=== PATIENT | male | born 1955 | race American Indian/Alaskan Native ===

== ENCOUNTER 2017-06-17 07:50 | Outpatient (CLI) | payer BC ==
[2017-06-17 08:51] LABS: Blood Urea Nitrogen 8 mg/dL (9-20)
--- NOTE | 2017-06-17 11:54 | Cat Scan Report ---
CT ABDOMEN AND PELVIS WITH AND WITHOUT CONTRAST INDICATION: Microscopic hematuria. COMPARISON: 10/06/2014 FINDINGS: Abdomen and pelvis CT performed following oral and IV contrast. Precontrast images also obtained. LUNG BASES: Slight air filled distal esophageal prominence/thickening, not exclude for gastroesophageal reflux and/or hiatal hernia, amongst others. Stable 1.2 cm peripheral left lower lobe pneumatocele. New 2 cm right retrocrural lymphadenopathy, axial image 19, series 4. ABDOMEN: Precontrast images demonstrate no radiopaque gallstones or renal calculi. Postcontrast images demonstrate unremarkable liver, spleen, gallbladder, pancreas, adrenals, non-aneurysmal abdominal aorta with mild atherosclerotic calcifications, IVC and kidneys. No ascites. Retroperitoneal lymphadenopathy with largest left paraortic lymph node measuring 3.2 x 2.7 cm, axial image 47, series 4. Some iliac chain lymphadenopathy also noted, measuring up to 1.9 cm on the right, axial image 93, series 4. Opacified GI tract nonobstructive. Mild to moderate colonic stool/possible constipation. PELVIS: An enlarged, 5.5 cm AP x 4.6 cm transverse prostate creates an impression at the bladder base and may be correlated for clinically and with PSA. Otherwise grossly unremarkable urinary bladder and the rectosigmoid. No free fluid or inguinal lymphadenopathy. A 2.2 x 1.5 cm right lateral pelvic wall lymph node noted, axial image 127, series 4. Innumerable sclerotic metastases throughout the imaged spine now seen with the largest 1.2 cm focus in L2 posterior midline, axial image 49, series 4. Bilateral L4-L5 facet arthropathy with minimal, 1 mm spondylolisthesis. Multiple small pelvic sclerotic metastases also noted. CONCLUSION: 1. Diffuse bony metastatic disease is new, as described. Extensive lymphadenopathy also noted in this patient with an enlarged, suspected neoplastic prostate. Please correlate. 2. Various other incidental findings, as above. Thank you for the opportunity to participate in this patient's care.
--- NOTE | 2017-06-17 12:44 | Nuclear Medicine Report ---
NUCLEAR MEDICINE WHOLE BODY BONE SCAN HISTORY: Malignant neoplasm of prostate. TECHNIQUE: Anterior and posterior whole body images were obtained 3 hours after injection of 25 mCi of technetium 99 M. MDP. FINDINGS: No previous bone scan. Correlation is made with CT abdomen and pelvis performed the same day. The bone scan images demonstrate numerous areas of abnormal increased radiotracer uptake throughout the cervical, thoracic and lumbar spine. Subtle areas of uptake are identified in multiple bilateral ribs. There is focal uptake overlying the glenoid of the right scapula. Focal uptake is also identified along the right side of the facial bones which may correlate with the right zygoma. There is very subtle heterogeneous uptake throughout the pelvis as well. CT performed the same day demonstrates numerous small sclerotic lesions throughout the spine, lower rib cage and pelvis which correlates with the above findings. IMPRESSION: Positive bone scan. Multiple metastatic lesions are appreciated as outlined above. These findings are also demonstrated on CT performed the same day.
== END 2017-06-17 07:51 | disposition home or self-care (01) ==
LOC: NM 07:50
PROVIDERS: ATTEND Urology
DX: C79.51 Secondary malignant neoplasm of bone (principal); C61 Malignant neoplasm of prostate; R31.29 Other microscopic hematuria; J98.4 Other disorders of lung; I70.0 Atherosclerosis of aorta; N40.0 Benign prostatic hyperplasia without lower urinary tract symptoms; M12.88 Other specific arthropathies, not elsewhere classified, other specified site; M43.16 Spondylolisthesis, lumbar region; R59.1 Generalized enlarged lymph nodes; F17.200 Nicotine dependence, unspecified, uncomplicated
CPT/HCPCS: 36415; 74178; 78306; 82565; 84520; A9503; Q9967

== ENCOUNTER 2018-02-16 09:58 | Emergency (ER) | payer BC ==
[2018-02-16 11:24] LABS: Basophils % (Auto) 0.6 % (0.0-1.8); Hematocrit 41.4 % (35.5-45.6); Hemoglobin 13.9 gm/dl (11.8-15.2); Lymphocytes # (Auto) 1.6 K/mm3 (1.2-5.4); Lymphocytes % (Auto) 39.3 % (13.4-35.0); Mean Corpuscular HGB Conc 34 % (32-34); Mean Corpuscular Hemoglobin 26 pg (28-32); Mean Corpuscular Volume 79 fl (84-94); Monocytes # (Auto) 0.4 K/mm3 (0.0-0.8); Monocytes % (Auto) 8.9 % (0.0-7.3); Platelet Count 176 K/mm3 (140-440); Red Blood Count 5.26 M/mm3 (3.65-5.03); Red Cell Distribution Width 16.7 % (13.2-15.2)
[2018-02-16 11:50] LABS: Alanine Aminotransferase 36 units/L (7-56); Albumin 4.1 g/dL (3.9-5); BUN/Creatinine Ratio 25; Blood Urea Nitrogen 10 mg/dL (9-20); Calcium 9.3 mg/dL (8.4-10.2); Hemolysis Index 1
[2018-02-16 12:46] LABS: Bilirubin,Urine NEG (Negative); Blood,Urine NEG (Negative); Color,Urine Yellow (Yellow); Protein,Urine <15 mg/dL mg/dL (Negative); Urobilinogen,Urine < 2.0 mg/dL (<2.0)
[2018-02-16 12:56] LABS: Amphetamine Screen,Urine PRESUMPTIVE NEGATIVE; Benzodiazepines Screen,Urine PRESUMPTIVE NEGATIVE; Cannabinoid Screen,Urine PRESUMPTIVE NEGATIVE; Cocaine Screen,Urine PRESUMPTIVE NEGATIVE; Methadone Screen,Urine PRESUMPTIVE NEGATIVE; Opiate Screen,Urine PRESUMPTIVE NEGATIVE
--- NOTE | 2018-02-16 13:30 | Emergency Department Report ---
ED Altered Mental Status HPI - General Chief Complaint: Altered Mental Status Stated Complaint: DIZZINESS Time Seen by Provider: 02/16/18 13:11 Source: patient Mode of arrival: Ambulatory Limitations: No Limitations - History of Present Illness Initial Comments: 62-year-old male with a past medical history prostate cancer and hypertension presents to the hospital for changes in mental status and behavior. reports that patient is more irritable lately, anger outbursts, and not sleeping the last couple of days. Patient takes multiple medications including Cymbalta at bedtime. Patient denies any physical complaints or neurologic deficits. He expresses that he is frustrated because he takes so many pills and is doing with prostate cancer. Patient completed chemotherapy and is now currently getting Lupron shots every 3 months. Patient takes oxycodone 15 mg as needed for chronic pain to his legs and abdomen but sometimes takes 2 tablets at a time. He reports that after taking medication yesterday he had difficulty driving home. Patient has not had any narcotics today. - Related Data Previous Rx's Medication Instructions Recorded Last Taken Type Omeprazole [PriLOSEC] 20 mg PO QDAY #30 capsule. 10/06/14 Unknown Rx Promethazine [Phenergan] 25 mg PO Q6H PRN #30 tablet 10/06/14 Unknown Rx Tramadol HCl [traMADol] 50 mg PO Q6HR PRN #20 tablet 10/06/14 Unknown Rx amLODIPine [Norvasc] 5 mg PO DAILY #30 tab 10/06/14 Unknown Rx hydrOXYzine PAMOATE [Vistaril] 50 mg PO QHS PRN #20 capsule 02/16/18 Unknown Rx Allergies Allergy/AdvReac Type Severity Reaction Status Date / Time No Known Allergies Allergy Unverified 10/05/14 20:23 ED Review of Systems ROS: Stated complaint: DIZZINESS Other details as noted in HPI Comment: All other systems reviewed and negative ED Past Medical Hx - Past Medical History Previous Medical History?: Yes Hx Hypertension: Yes (Lisinopril) Hx of Cancer: Yes (PROSTATE STAGE 4) - Surgical History Past Surgical History?: No - Social History Smoking Status: Current Every Day Smoker Substance Use Type: Alcohol, Prescribed - Medications Home Medications: Home Medications Medication Instructions Recorded Confirmed Last Taken Type Omeprazole [PriLOSEC] 20 mg PO QDAY #30 capsule. 10/06/14 Unknown Rx Promethazine [Phenergan] 25 mg PO Q6H PRN #30 tablet 10/06/14 Unknown Rx Tramadol HCl [traMADol] 50 mg PO Q6HR PRN #20 tablet 10/06/14 Unknown Rx amLODIPine [Norvasc] 5 mg PO DAILY #30 tab 10/06/14 Unknown Rx hydrOXYzine PAMOATE [Vistaril] 50 mg PO QHS PRN #20 capsule 02/16/18 Unknown Rx ED Physical Exam - General Limitations: No Limitations - Other Other exam information: General: No limitations, patient is alert in no acute distress Head exam: Atraumatic, normocephalic Eyes exam: Normal appearance, pupils equal reactive to light, extraocular movements intact ENT: Moist mucous membrane, normal oropharynx Neck exam: Normal inspection, full range of motion, no meningismus nontender Respiratory exam: Clear to auscultation bilateral, no wheezes, rales, crackles Cardiovascular: Normal rate and rhythm, normal heart sounds Abdomen: Soft, nondistended, and nontender, with normal bowel sounds, no rebound, or guarding Extremity: Full range of motion normal inspection no deformity Back: Normal Inspection, full range of motion, no tenderness Neurologic: Alert, oriented x3, cranial nerves intact, no motor or sensory deficit, NIH stroke scale 0 Psychiatric: Patient does have angry and aggressive tone and expresses frustration but is cooperative and not combative with staff. Skin: Warm, dry, intact - Assessment Assessment Interval: Baseline - Level of Consciousness 1a. Level of Consciousness: alert - LOC Questions 1b. LOC Questions: answers correctly - LOC Command 1c. LOC Commands: performs tasks correctly - Best Gaze 2. Best Gaze: normal - Visual 3. Visual: no visual loss - Facial Palsy 4. Facial Palsy: normal symmetrical movement - Motor Arm 5b. Motor Arm Right: no drift 5a. Motor Arm Left: no drift - Motor Leg 6a. Motor Leg Left: no drift 6b. Motor Leg Right: no drift - Limb Ataxia 7. Limb Ataxia: absent - Sensory 8. Sensory: normal - Best Language 9. Best Language: no aphasia - Dysarthria 10. Dysarthria: normal - Extinction and Inattention 11. Extinction/Inattention: no abnormality - Scoring Total Score: 0 Stroke Severity: No Stroke Symptoms ED Course Vital Signs 02/16/18 02/16/18 10:44 13:25 Temperature 98.8 F Pulse Rate 71 71 Respiratory 18 18 Rate Blood Pressure 170/94 Blood Pressure 158/100 [Left] O2 Sat by Pulse 99 100 Oximetry - Lab Data Result diagrams: 02/16/18 11:07 02/16/18 11:07 Lab Results 02/16/18 02/16/18 02/16/18 Range/Units 11:07 11:07 11:07 WBC 4.0 L (4.5-11.0) K/mm3 RBC 5.26 H (3.65-5.03) M/mm3 Hgb 13.9 (11.8-15.2) gm/dl Hct 41.4 (35.5-45.6) % MCV 79 L (84-94) fl MCH 26 L (28-32) pg MCHC 34 (32-34) % RDW 16.7 H (13.2-15.2) % Plt Count 176 (140-440) K/mm3 Lymph % (Auto) 39.3 H (13.4-35.0) % Thomas % (Auto) 8.9 H (0.0-7.3) % Eos % (Auto) 1.0 (0.0-4.3) % Baso % (Auto) 0.6 (0.0-1.8) % Lymph # 1.6 (1.2-5.4) K/mm3 Thomas # 0.4 (0.0-0.8) K/mm3 Eos # 0.0 (0.0-0.4) K/mm3 Baso # 0.0 (0.0-0.1) K/mm3 Seg Neutrophils % 50.2 (40.0-70.0) % Seg Neutrophils # 2.0 (1.8-7.7) K/mm3 Sodium 139 (137-145) mmol/L Potassium 4.1 (3.6-5.0) mmol/L Chloride 99.4 (98-107) mmol/L Carbon Dioxide 27 (22-30) mmol/L Anion Gap 17 mmol/L BUN 10 (9-20) mg/dL Creatinine 0.4 L (0.8-1.5) mg/dL Estimated GFR > 60 ml/min BUN/Creatinine Ratio 25 % Glucose 109 H (75-100) mg/dL POC Glucose (70-105) Calcium 9.3 (8.4-10.2) mg/dL Total Bilirubin 0.40 (0.1-1.2) mg/dL AST 57 H (5-40) units/L ALT 36 (7-56) units/L Alkaline Phosphatase 72 (35-129) units/L Total Protein 7.2 (6.3-8.2) g/dL Albumin 4.1 (3.9-5) g/dL Albumin/Globulin Ratio 1.3 % TSH 0.291 (0.270-4.200) mlU/mL Urine Color (Yellow) Urine Turbidity (Clear) Urine pH (5.0-7.0) Ur Specific [place] (1.003-1.030) Urine Protein (Negative) mg/dL Urine Glucose (UA) (Negative) mg/dL Urine Ketones (Negative) mg/dL Urine Blood (Negative) Urine Nitrite (Negative) Urine Bilirubin (Negative) Urine Urobilinogen (<2.0) mg/dL Ur Leukocyte Esterase (Negative) Urine WBC (Auto) (0.0-6.0) /HPF Urine RBC (Auto) (0.0-6.0) /HPF Urine Opiates Screen Urine Methadone Screen Ur Barbiturates Screen Ur Phencyclidine Scrn Ur Amphetamines Screen U Benzodiazepines Scrn Urine Cocaine Screen U Marijuana (THC) Screen Drugs of Abuse Note Plasma/Serum Alcohol (0-0.07) % 02/16/18 02/16/18 02/16/18 Range/Units 11:07 11:41 11:44 WBC (4.5-11.0) K/mm3 RBC (3.65-5.03) M/mm3 Hgb (11.8-15.2) gm/dl Hct (35.5-45.6) % MCV (84-94) fl MCH (28-32) pg MCHC (32-34) % RDW (13.2-15.2) % Plt Count (140-440) K/mm3 Lymph % (Auto) (13.4-35.0) % Thomas % (Auto) (0.0-7.3) % Eos % (Auto) (0.0-4.3) % Baso % (Auto) (0.0-1.8) % Lymph # (1.2-5.4) K/mm3 Thomas # (0.0-0.8) K/mm3 Eos # (0.0-0.4) K/mm3 Baso # (0.0-0.1) K/mm3 Seg Neutrophils % (40.0-70.0) % Seg Neutrophils # (1.8-7.7) K/mm3 Sodium (137-145) mmol/L Potassium (3.6-5.0) mmol/L Chloride (98-107) mmol/L Carbon Dioxide (22-30) mmol/L Anion Gap mmol/L BUN (9-20) mg/dL Creatinine (0.8-1.5) mg/dL Estimated GFR ml/min BUN/Creatinine Ratio % Glucose (75-100) mg/dL POC Glucose (70-105) Calcium (8.4-10.2) mg/dL Total Bilirubin (0.1-1.2) mg/dL AST (5-40) units/L ALT (7-56) units/L Alkaline Phosphatase (35-129) units/L Total Protein (6.3-8.2) g/dL Albumin (3.9-5) g/dL Albumin/Globulin Ratio % TSH (0.270-4.200) mlU/mL Urine Color Yellow (Yellow) Urine Turbidity Clear (Clear) Urine pH 8.0 H (5.0-7.0) Ur Specific [place] 1.010 (1.003-1.030) Urine Protein <15 mg/dl (Negative) mg/dL Urine Glucose (UA) Neg (Negative) mg/dL Urine Ketones Neg (Negative) mg/dL Urine Blood Neg (Negative) Urine Nitrite Neg (Negative) Urine Bilirubin Neg (Negative) Urine Urobilinogen < 2.0 (<2.0) mg/dL Ur Leukocyte Esterase Neg (Negative) Urine WBC (Auto) 0.0 (0.0-6.0) /HPF Urine RBC (Auto) 2.0 (0.0-6.0) /HPF Urine Opiates Screen Presumptive negative Urine Methadone Screen Presumptive negative Ur Barbiturates Screen Presumptive negative Ur Phencyclidine Scrn Presumptive negative Ur Amphetamines Screen Presumptive negative U Benzodiazepines Scrn Presumptive negative Urine Cocaine Screen Presumptive negative U Marijuana (THC) Screen Presumptive negative Drugs of Abuse Note Disclamer Plasma/Serum Alcohol < 0.01 (0-0.07) % 02/16/18 Range/Units 13:21 WBC (4.5-11.0) K/mm3 RBC (3.65-5.03) M/mm3 Hgb (11.8-15.2) gm/dl Hct (35.5-45.6) % MCV (84-94) fl MCH (28-32) pg MCHC (32-34) % RDW (13.2-15.2) % Plt Count (140-440) K/mm3 Lymph % (Auto) (13.4-35.0) % Thomas % (Auto) (0.0-7.3) % Eos % (Auto) (0.0-4.3) % Baso % (Auto) (0.0-1.8) % Lymph # (1.2-5.4) K/mm3 Thomas # (0.0-0.8) K/mm3 Eos # (0.0-0.4) K/mm3 Baso # (0.0-0.1) K/mm3 Seg Neutrophils % (40.0-70.0) % Seg Neutrophils # (1.8-7.7) K/mm3 Sodium (137-145) mmol/L Potassium (3.6-5.0) mmol/L Chloride (98-107) mmol/L Carbon Dioxide (22-30) mmol/L Anion Gap mmol/L BUN (9-20) mg/dL Creatinine (0.8-1.5) mg/dL Estimated GFR ml/min BUN/Creatinine Ratio % Glucose (75-100) mg/dL POC Glucose 118 H (70-105) Calcium (8.4-10.2) mg/dL Total Bilirubin (0.1-1.2) mg/dL AST (5-40) units/L ALT (7-56) units/L Alkaline Phosphatase (35-129) units/L Total Protein (6.3-8.2) g/dL Albumin (3.9-5) g/dL Albumin/Globulin Ratio % TSH (0.270-4.200) mlU/mL Urine Color (Yellow) Urine Turbidity (Clear) Urine pH (5.0-7.0) Ur Specific [place] (1.003-1.030) Urine Protein (Negative) mg/dL Urine Glucose (UA) (Negative) mg/dL Urine Ketones (Negative) mg/dL Urine Blood (Negative) Urine Nitrite (Negative) Urine Bilirubin (Negative) Urine Urobilinogen (<2.0) mg/dL Ur Leukocyte Esterase (Negative) Urine WBC (Auto) (0.0-6.0) /HPF Urine RBC (Auto) (0.0-6.0) /HPF Urine Opiates Screen Urine Methadone Screen Ur Barbiturates Screen Ur Phencyclidine Scrn Ur Amphetamines Screen U Benzodiazepines Scrn Urine Cocaine Screen U Marijuana (THC) Screen Drugs of Abuse Note Plasma/Serum Alcohol (0-0.07) % - Medical Decision Making Patient is alert and oriented 3 and has no neurologic deficits. The patient expresses frustration and complains anger outbursts. Patient has not been sleeping the last couple of days. ED workup unremarkable. Vistaril will be prescribed to be taken at bedtime to aid in sleep. - Differential Diagnosis insomnia, depression, encephalopathy, electrolyte abnormality Critical Care Time: No Critical care attestation.: If time is entered above; I have spent that time in minutes in the direct care of this critically ill patient, excluding procedure time. ED Disposition Clinical Impression: Insomnia, Outbursts of anger, Prostate cancer, HTN (hypertension), Chronic pain Disposition: DC-01 TO HOME OR SELFCARE Is pt being admited?: No Does the pt Need Aspirin: No Condition: Stable Instructions: Hypertension (ED), Insomnia (ED) Additional Instructions: Take the Vistaril for insomnia 30-60 minutes before bedtime. Follow up with her primary care doctor for further management and medication adjustment. Take oxycodone as prescribed and do not increase your dosage unless directed by your physician. Please do not drive or operate heavy machinery while taking this medication. Prescriptions: hydrOXYzine PAMOATE [Vistaril] 50 mg PO QHS PRN #20 capsule PRN Reason: Insomnia Referrals: PRIMARY CARE, [Primary Care Provider] - 3-5 Days Time of Disposition: 13:45
[2018-02-16 13:40] VITALS: BP 158/100
== END 2018-02-16 14:01 | disposition home or self-care (01) ==
LOC: ED 09:58
DX: I10 Essential (primary) hypertension (principal); G47.00 Insomnia, unspecified; G89.29 Other chronic pain; F41.9 Anxiety disorder, unspecified; R45.4 Irritability and anger; C61 Malignant neoplasm of prostate; F17.200 Nicotine dependence, unspecified, uncomplicated
CPT/HCPCS: 36415; 80053; 80307; 81001; 82962; 84443; 85025; 93005; 93010; 99284; G0480; 80320

== ENCOUNTER 2021-08-06 11:52 | Emergency (ER) | payer BC, MEDICARE ==
--- NOTE | 2021-08-06 12:27 | Event Note ---
ED Screening Note ED Screening Note: stage iv prostate ca on oral chemo comes to ER co worsening back and abd pain Gets care at [place] Pt has a bag of meds for review This initial assessment/diagnostic orders/clinical plan/treatment(s) is/are subject to change based on patients health status, clinical progression and re- assessment by fellow clinical providers in the ED. Further treatment and workup at subsequent clinical providers discretion. Patient/guardian urged not to elope from the ED as their condition may be serious if not clinically assessed and managed. Initial orders include: labs pain management
[2021-08-06 12:50] LABS: Basophils % (Auto) 0.7 % (0.0-1.8); Eosinophils # (Auto) 0.1 K/mm3 (0.0-0.4); Eosinophils % (Auto) 1.5 % (0.0-4.3); Hematocrit 35.5 % (35.5-45.6); Hemoglobin 11.9 gm/dl (11.8-15.2); Lymphocytes # (Auto) 1.5 K/mm3 (1.2-5.4); Lymphocytes % (Auto) 41.1 % (13.4-35.0); Mean Corpuscular HGB Conc 33 % (32-34); Mean Corpuscular Volume 82 fl (84-94); Monocytes # (Auto) 0.4 K/mm3 (0.0-0.8); Monocytes % (Auto) 9.4 % (0.0-7.3); Platelet Count 394 K/mm3 (140-440); Red Blood Count 4.35 M/mm3 (3.65-5.03); Red Cell Distribution Width 13.6 % (13.2-15.2)
[2021-08-06 13:01] LABS: INR 0.92 (0.87-1.13)
[2021-08-06 13:11] LABS: Alanine Aminotransferase 26 units/L (7-56); Albumin 3.5 g/dL (3.9-5); BUN/Creatinine Ratio 9; Bilirubin,Direct 0.2 mg/dL (0-0.2); Blood Urea Nitrogen 7 mg/dL (9-20); Calcium 8.2 mg/dL (8.4-10.2); Hemolysis Index 9
[2021-08-06] MEDS ORDERED: MORPHINE 4 MG/1 ML INJ IV ONE (13:11)
--- NOTE | 2021-08-06 13:15 | Emergency Department Report ---
ED Abdominal Pain HPI - General Chief Complaint: Pain General Stated Complaint: WEAK/BODY PAIN Time Seen by Provider: 08/06/21 12:26 Source: patient Mode of arrival: Ambulatory Limitations: No Limitations - History of Present Illness Initial Comments: Patient presents with abdominal pain. For the last 3 to 4 days he has been having right-sided abdominal pain that radiates into the right flank. It is described as an aching pain. It is worse when he is supine and recumbent. It also is worsened by movement. There is no pain with palpation. He denies nausea or vomiting. There is no fevers or chills. Has no dysuria or frequency. He states that he has urinated in the bed and that is something unusual for him. Patient has known prostate cancer. He gets all of his care at [place]. He has been taking his usual oxycodone 10 mg and Tylenol 2 extra strength without symptomatic improvement. He decided to come here today because of the pain. He did not call his oncologist. He has not had pain like this before. There is no history of recent travel or trauma. Has no fevers or chills. There is no other GI complaint. - Related Data Previous Rx's Medication Instructions Recorded Last Taken Type Omeprazole [PriLOSEC] 20 mg PO QDAY #30 capsule. 10/06/14 1 Day Ago Rx ~08/05/21 amLODIPine [Norvasc] 5 mg PO DAILY #30 tab 10/06/14 1 Day Ago Rx ~08/05/21 Allergies Allergy/AdvReac Type Severity Reaction Status Date / Time No Known Allergies Allergy Verified 08/06/21 12:02 ED Review of Systems ROS: Stated complaint: WEAK/BODY PAIN Other details as noted in HPI Comment: All other systems reviewed and negative Constitutional: denies: fever Eyes: denies: eye pain ENT: denies: throat pain Respiratory: denies: cough Cardiovascular: denies: chest pain Endocrine: denies: unexplained weight loss Gastrointestinal: as per HPI Genitourinary: denies: dysuria Musculoskeletal: as per HPI Skin: denies: rash Neurological: denies: headache Hematological/Lymphatic: denies: easy bruising ED Past Medical Hx - Past Medical History Hx Hypertension: Yes (Lisinopril) Hx of Cancer: Yes (Prostate) - Surgical History Past Surgical History?: No - Family History Family history: hypertension - Social History Smoking Status: Current Every Day Smoker (We discussed tobacco cessation x3 minutes) Substance Use Type: Alcohol, Prescribed - Medications Home Medications: Home Medications Medication Instructions Recorded Confirmed Last Taken Type Omeprazole [PriLOSEC] 20 mg PO QDAY #30 capsule. 10/06/14 1 Day Ago Rx ~08/05/21 amLODIPine [Norvasc] 5 mg PO DAILY #30 tab 10/06/14 1 Day Ago Rx ~08/05/21 ED Physical Exam - General Limitations: No Limitations, Other (Pulse ox noted and normal) General appearance: alert, in no apparent distress, other (He is eating a sandwich) - Head Head exam: Present: atraumatic, normocephalic, normal inspection - Eye Eye exam: Present: normal appearance, EOMI. Absent: scleral icterus - ENT ENT exam: Present: normal exam, normal orophraynx, normal external ear exam - Neck Neck exam: Present: normal inspection. Absent: meningismus - Respiratory Respiratory exam: Present: normal lung sounds bilaterally. Absent: respiratory distress - Cardiovascular Cardiovascular Exam: Present: regular rate, normal rhythm - GI/Abdominal GI/Abdominal exam: Present: soft. Absent: distended, tenderness, pulsatile mass - Extremities Exam Extremities exam: Present: normal capillary refill - Back Exam Back exam: Absent: CVA tenderness (R) - Neurological Exam Neurological exam: Present: alert, oriented X3, CN II-XII intact, normal gait, reflexes normal. Absent: motor sensory deficit - Psychiatric Psychiatric exam: Present: normal affect, normal mood - Skin Skin exam: Present: warm, dry ED Course Vital Signs 08/06/21 08/06/21 08/06/21 13:44 13:45 14:01 Pulse Rate 59 L 59 L 56 L Respiratory 26 H 13 15 Rate Blood Pressure 136/75 137/69 O2 Sat by Pulse 100 100 Oximetry 08/06/21 16:34 Pulse Rate Respiratory 18 Rate Blood Pressure O2 Sat by Pulse 95 Oximetry - Reevaluation(s) Reevaluation #1: 08/06/21 13:14 Labs were ordered. Old records reviewed. Reevaluation #2: 08/06/21 13:51 Electrolytes were noted. Oral potassium was ordered. The labs are still pending. Reevaluation #3: 08/06/21 17:13 Labs were noted and the patient was discharged ED Medical Decision Making - Lab Data Result diagrams: 08/06/21 12:34 08/06/21 12:34 Rhythm strip: Normal sinus rhythm without ectopy. Monitor observed in seconds. - Medical Decision Making Patient presented with pain related to cancer. There is no evidence of acute kidney injury. He does not have evidence of infectious pathology. There is no trauma that would have suggested any type of injury. He certainly does not have symptoms concerning for pathologic fracture. Patient does not have any abdominal tenderness on exam. There is no rebound or guarding at this time. He has no distention or tympany. I do not believe this represents bowel obstruction or peritonitis. He denies dysuria or frequency and has no hematuria. I am not concerned for pyelonephritis or renal colic. Critical Care Time: No Critical care attestation.: If time is entered above; I have spent that time in minutes in the direct care of this critically ill patient, excluding procedure time. ED Disposition Clinical Impression: Right lateral abdominal pain, Acute right flank pain, Hypokalemia Disposition: 01 HOME / SELF CARE / HOMELESS Is pt being admited?: No Condition: Stable Instructions: Hypokalemia, Flank Pain, Adult, Potassium Content of Foods Additional Instructions: Drink water. Return for problems. Continue home medication. Follow-up with yo ur regular oncologist for recheck and further management. Eat bananas and drink orange juice for potassium. Referrals: PRIMARY CARE, [Primary Care Provider] - 3-5 Days
[2021-08-06] MEDS ORDERED: POTASSIUM CHLORIDE ER 20 MEQ TAB PO ONE (13:50)
[2021-08-06 14:05] VITALS: BP 137/69
[2021-08-06 15:18] LABS: Bilirubin,Urine NEG (Negative); Blood,Urine NEG (Negative); Color,Urine Yellow (Yellow)
== END 2021-08-06 17:25 | disposition home or self-care (01) ==
LOC: ED 11:52
DX: E87.6 Hypokalemia (principal); R10.9 Unspecified abdominal pain; I10 Essential (primary) hypertension; F17.200 Nicotine dependence, unspecified, uncomplicated; Z72.89 Other problems related to lifestyle; Z79.899 Other long term (current) drug therapy
CPT/HCPCS: 36415; 80048; 80076; 81001; 83690; 83735; 84100; 85025; 85610; 96374; 99283; J2270

== ENCOUNTER 2021-08-21 08:17 | Inpatient (IN) | payer MEDICARE ==
--- NOTE | 2021-08-21 08:34 | Emergency Department Report ---
ED General Adult HPI - General Chief complaint: Abdominal Pain Stated complaint: ABDOMINAL PAIN PUI?: No Time Seen by Provider: 08/21/21 08:30 Source: patient, family, EMS ( EMS documentation not available at time of chart dictation ), RN notes reviewed, old records reviewed Mode of arrival: Stretcher Limitations: Physical Limitation - History of Present Illness Initial comments: The patient is a 66-year-old gentleman. He is not known to myself previously. He has a history of diabetes and stage IV prostate cancer. He takes oral chemotherapy. He typically gets his medical care at [facility]. The patient presents to the ER today with a primary complaint of nontraumatic right lower quadrant pain that radiates to the flank and back. He also endorses simultaneous weakness in legs giving out on him, predominantly in the right leg, for the past 3 days. The patient denies headache, neck pain, chest pain, vomiting, urinary symptoms. He has not defecated in 1 week. He has not urinated on himself today. No history of abdominal surgeries that he is aware of. Abdominal pain is sharp and throbbing, increases with palpation and range of motion, decreases with rest, and position. Lower extremity weakness is predominantly in the right leg, present for 3 days, mostly at the proximal hip, and constant. -: Gradual, days(s) Location: abdomen Radiation: back Severity scale (0 -10): 10 Quality: other Consistency: other Improves with: other Worsens with: other - Related Data Home Medications Medication Instructions Recorded Confirmed Last Taken Abiraterone Acetate 250 mg PO DAILY 08/22/21 08/22/21 08/20/21 09:00 DULoxetine 50 mg PO DAILY 08/22/21 08/22/21 08/20/21 09:00 Gabapentin [Neurontin] 800 mg PO TID 08/22/21 08/22/21 08/20/21 09:00 Lisinopril 20 mg PO DAILY 08/22/21 08/22/21 08/20/21 09:00 Pyridoxine HCl (Vitamin B6) 100 mg PO DAILY 08/22/21 08/22/21 Unknown [Vitamin B6] amLODIPine 10 mg PO DAILY 08/22/21 08/22/21 08/20/21 09:00 oxyCODONE 10 mg PO PRN 08/22/21 08/22/21 08/20/21 09:00 Previous Rx's Medication Instructions Recorded Last Taken Type Omeprazole [PriLOSEC] 20 mg PO QDAY #30 capsule. 10/06/14 1 Day Ago Rx ~08/05/21 Allergies Allergy/AdvReac Type Severity Reaction Status Date / Time No Known Allergies Allergy Verified 08/22/21 03:39 ED Review of Systems ROS: Stated complaint: ABDOMINAL PAIN Other details as noted in HPI Constitutional: malaise, weakness. denies: fever Eyes: denies: eye discharge ENT: denies: epistaxis Respiratory: denies: cough Cardiovascular: denies: chest pain Gastrointestinal: abdominal pain Musculoskeletal: back pain Neurological: weakness ED Past Medical Hx - Past Medical History Previous Medical History?: Yes Hx Hypertension: Yes (Lisinopril) Hx Diabetes: Yes Hx of Cancer: Yes (Stage 4 Prostate Cancer) - Social History Smoking Status: Current Every Day Smoker (We discussed tobacco cessation x3 rosa sanna) Substance Use Type: Alcohol, Prescribed - Medications Home Medications: Home Medications Medication Instructions Recorded Confirmed Last Taken Type Omeprazole [PriLOSEC] 20 mg PO QDAY #30 capsule. 10/06/14 08/22/21 1 Day Ago Rx ~08/05/21 Abiraterone Acetate 250 mg PO DAILY 08/22/21 08/22/21 08/20/21 09:00 History DULoxetine 50 mg PO DAILY 08/22/21 08/22/21 08/20/21 09:00 History Gabapentin [Neurontin] 800 mg PO TID 08/22/21 08/22/21 08/20/21 09:00 History Lisinopril 20 mg PO DAILY 08/22/21 08/22/21 08/20/21 09:00 History Pyridoxine HCl (Vitamin B6) 100 mg PO DAILY 08/22/21 08/22/21 Unknown History [Vitamin B6] amLODIPine 10 mg PO DAILY 08/22/21 08/22/21 08/20/21 09:00 History oxyCODONE 10 mg PO PRN 08/22/21 08/22/21 08/20/21 09:00 History ED Physical Exam - General Limitations: Physical Limitation General appearance: alert, in no apparent distress - Head Head exam: Present: atraumatic, normocephalic - Eye Eye exam: Present: normal appearance, EOMI. Absent: nystagmus - ENT ENT exam: Present: normal exam, normal orophraynx, mucous membranes moist, normal external ear exam - Neck Neck exam: Present: normal inspection, full ROM. Absent: tenderness, meningismus - Respiratory Respiratory exam: Present: normal lung sounds bilaterally. Absent: respiratory distress, wheezes, rales, rhonchi, stridor, decreased breath sounds - Cardiovascular Cardiovascular Exam: Present: regular rate, normal rhythm, normal heart sounds. Absent: bradycardia, tachycardia, irregular rhythm, systolic murmur, diastolic murmur, rubs, gallop - GI/Abdominal GI/Abdominal exam: Present: soft, tenderness, guarding, other (There is right flank tenderness. There is right lower quadrant tenderness). Absent: distended, rebound, rigid, pulsatile mass - Rectal Rectal exam: Present: deferred - Extremities Exam Extremities exam: Present: normal inspection, full ROM (Full range of motion bilateral upper extremities. Partial range of motion left lower extremity. Limited range of motion right lower extremity), other (2+ pulses noted in the bilateral upper and lower extremities. There is no palpable cord. negative Homans sign. Muscular compartments are soft. The pelvis is stable.). Absent: calf tenderness - Back Exam Back exam: Present: normal inspection, paraspinal tenderness, vertebral tenderness (L-spine, distal T-spine). Absent: CVA tenderness (R), CVA tenderness (L) - Neurological Exam Neurological exam: Present: alert (There is no facial droop. The tongue is midline. EOMI.), oriented X3, motor sensory deficit (There is 5 out of 5 strength in the bilateral upper extremities, with sensation intact to light touch and proprioception in the bilateral upper extremities.), other (Patient has 2 out of 5 strength in the right lower extremity, with intact sensation to light touch and proprioception in the right lower extremity.) - Psychiatric Psychiatric exam: Present: anxious - Skin Skin exam: Present: warm, dry, intact, normal color. Absent: rash - Other Other exam information: 5 out of 5 strength bilateral upper extremities. 4 out of 5 strength left lower extremity, left-sided hip extensor and flexor intact, left knee extensor and flexor intact, left foot dorsi and plantar flexion are intact. ED Course Vital Signs 08/21/21 08/21/21 08/21/21 08:21 08:31 08:33 Temperature 99.2 F Pulse Rate 67 62 81 Respiratory 16 14 21 Rate Blood Pressure Blood Pressure 153/81 [Right] O2 Sat by Pulse 100 100 Oximetry 08/21/21 08/21/21 08/21/21 08:34 08:35 08:36 Temperature 99.5 F Pulse Rate 88 78 Respiratory 19 14 Rate Blood Pressure 155/81 155/81 Blood Pressure [Right] O2 Sat by Pulse 100 100 Oximetry 08/21/21 08/21/21 08/21/21 08:37 08:39 08:41 Temperature Pulse Rate 101 H 80 70 Respiratory 22 22 25 H Rate Blood Pressure 155/81 155/81 155/81 Blood Pressure [Right] O2 Sat by Pulse 99 99 97 Oximetry 08/21/21 08/21/21 08/21/21 08:45 17:23 17:25 Temperature Pulse Rate Respiratory Rate Blood Pressure 137/67 137/67 Blood Pressure [Right] O2 Sat by Pulse 97 97 97 Oximetry 08/21/21 08/21/21 08/21/21 17:27 17:29 17:31 Temperature Pulse Rate Respiratory Rate Blood Pressure 137/67 137/67 144/68 Blood Pressure [Right] O2 Sat by Pulse 97 96 95 Oximetry 08/21/21 08/21/21 08/21/21 17:33 17:35 17:37 Temperature Pulse Rate Respiratory Rate Blood Pressure 144/68 144/68 144/68 Blood Pressure [Right] O2 Sat by Pulse 96 95 96 Oximetry 08/21/21 08/21/21 08/21/21 17:39 17:41 17:42 Temperature Pulse Rate Respiratory Rate Blood Pressure 144/68 144/68 166/84 Blood Pressure [Right] O2 Sat by Pulse 96 96 96 Oximetry 08/21/21 08/21/21 08/21/21 17:43 17:45 17:47 Temperature Pulse Rate Respiratory Rate Blood Pressure 144/68 144/68 144/68 Blood Pressure [Right] O2 Sat by Pulse 98 96 97 Oximetry 08/21/21 08/21/21 08/21/21 17:48 17:49 17:50 Temperature Pulse Rate Respiratory Rate Blood Pressure 144/68 144/68 144/68 Blood Pressure [Right] O2 Sat by Pulse 97 100 100 Oximetry 08/21/21 08/21/21 08/21/21 17:51 17:52 17:53 Temperature Pulse Rate Respiratory Rate Blood Pressure 144/68 144/68 144/68 Blood Pressure [Right] O2 Sat by Pulse 98 97 97 Oximetry 08/21/21 08/21/21 08/21/21 17:54 17:55 17:56 Temperature Pulse Rate Respiratory Rate Blood Pressure 144/68 144/68 144/68 Blood Pressure [Right] O2 Sat by Pulse 98 98 99 Oximetry 08/21/21 08/21/21 08/21/21 17:57 17:59 18:01 Temperature Pulse Rate Respiratory Rate Blood Pressure 144/68 144/68 140/70 Blood Pressure [Right] O2 Sat by Pulse 96 96 96 Oximetry 08/21/21 08/21/21 08/21/21 18:03 18:05 18:07 Temperature Pulse Rate Respiratory Rate Blood Pressure 140/70 140/70 140/70 Blood Pressure [Right] O2 Sat by Pulse 97 96 96 Oximetry 08/21/21 08/21/21 08/21/21 18:09 18:11 18:13 Temperature Pulse Rate Respiratory Rate Blood Pressure 140/70 140/70 140/70 Blood Pressure [Right] O2 Sat by Pulse 96 96 97 Oximetry 08/21/21 08/21/21 08/21/21 18:15 18:17 18:19 Temperature Pulse Rate Respiratory Rate Blood Pressure 140/70 140/70 140/70 Blood Pressure [Right] O2 Sat by Pulse 96 97 98 Oximetry 08/21/21 08/21/21 08/21/21 18:21 18:23 18:25 Temperature Pulse Rate Respiratory Rate Blood Pressure 140/70 140/70 140/70 Blood Pressure [Right] O2 Sat by Pulse 97 96 95 Oximetry 08/21/21 08/21/21 08/21/21 18:27 18:29 18:30 Temperature Pulse Rate Respiratory Rate Blood Pressure 140/70 140/70 144/70 Blood Pressure [Right] O2 Sat by Pulse 95 95 96 Oximetry 08/21/21 08/21/21 08/21/21 18:31 18:33 18:35 Temperature Pulse Rate Respiratory Rate Blood Pressure 144/70 144/70 144/70 Blood Pressure [Right] O2 Sat by Pulse 96 94 100 Oximetry 08/21/21 08/21/21 08/21/21 18:37 18:39 18:41 Temperature Pulse Rate Respiratory Rate Blood Pressure 144/70 144/70 144/70 Blood Pressure [Right] O2 Sat by Pulse 94 93 93 Oximetry 08/21/21 08/21/21 08/21/21 18:43 18:45 18:47 Temperature Pulse Rate Respiratory Rate Blood Pressure 144/70 144/70 144/70 Blood Pressure [Right] O2 Sat by Pulse 97 95 95 Oximetry 08/21/21 08/21/21 08/21/21 18:51 19:01 19:11 Temperature Pulse Rate Respiratory Rate Blood Pressure 144/70 141/74 141/74 Blood Pressure [Right] O2 Sat by Pulse 95 96 97 Oximetry 08/21/21 08/21/21 08/21/21 19:21 19:30 19:41 Temperature Pulse Rate Respiratory Rate Blood Pressure 141/74 138/70 138/70 Blood Pressure [Right] O2 Sat by Pulse 96 97 97 Oximetry 08/21/21 08/21/21 08/21/21 19:51 20:00 20:11 Temperature Pulse Rate Respiratory Rate Blood Pressure 138/70 125/69 125/69 Blood Pressure [Right] O2 Sat by Pulse 97 97 96 Oximetry 08/21/21 08/21/21 08/21/21 20:21 20:30 20:40 Temperature Pulse Rate Respiratory Rate Blood Pressure 125/69 129/69 129/69 Blood Pressure [Right] O2 Sat by Pulse 99 99 Oximetry - Reevaluation(s) Reevaluation #1: 08/21/21 10:08 Differential diagnosis, including not limited to: Appendicitis, colitis, diverticulitis, psoas abscess, myositis, spinal cord compression, metastatic cancer Assessment and plan: 66-year-old gentleman with a complaint of lower abdominal pain, back pain, and lower extremity weakness, with legs giving out on him. He reports a history of metastatic stage IV prostate cancer. We will obtain appropriate laboratory studies and treat his symptoms. We will obtain CT scan of the abdomen pelvis. We will also obtain thoracic lumbar MRI, with and without contrast. Contacted neurology on-call, Dr. Cash. I discussed my plan of care and clinical impression, regarding the patient's neurologic deficits. We discussed the patient's history, physical, and my clinical concern. He is in agreement with the plan of care. Hold steroids at this time. If in the unlikely event MRI nondiagnostic, Dr. Cash advises that it would be reasonable to admit the patient for urgent inpatient acquisition of MRI brain and C-spine. Laboratory studies thus far have demonstrated hypokalemia. We will replete this. Reassess after initial data points. I discussed this with the patient and his family member. They articulated understanding. 08/21/21 13:08 Patient reassessed multiple times. He feels improved after pain medication. Hypokalemia reviewed and addressed. CT scan abdomen pelvis shows constipation but otherwise no significant findings. Have made multiple phone calls to MRI. They tell myself and staff that they are backed up with outpatient studies, and with a stat study for the floor. This is escalated to the director card, and I also discussed with the hospital team. We have cleared it so that Mr. De may go next for his emergent MRI. He feels improved after hydromorphone for pain. Reevaluation #2: 08/21/21 13:11 Nursing team informing me that patient wants to sign out AMA. Went back and discussed this with the patient. Counseled him on need for emergent acquisition of MRI. The patient states he will now stay for an MRI. MRI has been called multiple times, and we have requested that this patient receive MRI next. 08/21/21 16:08 mri scan lumbar spine negative for acute findings. mri scan thoracic spine shows involvement at the T10 level. Contacted neurosurgery on-call, Dr. Ambriz. Discussed history, physical, imaging studies, clinical impression. He is reviewing the MRI findings, and CT scan Patient and gave permission for his care to be discussed with Lashell, medical collections representative coordinator at cancer treatment Center [facility]; [phone]. Apparently, this patient had been receiving treatment there in 2017, and then treatment lapsed secondary to lack of insurance. They are supposed to have a follow-up appointment next week. as a courtesy, and as per the request of the patient and family, discussed the details of his care with Lashell. I am currently awaiting callback from Dr. Ambriz. He is reviewing the images, and will make further recommendations shortly. 08/21/21 16:25 Dr. Ambriz advises admission to the medical service with neurosurgical consultation. Recommends steroids, and states his group will follow in consultation. We discussed with the patient and family. will admit to [facility] Reevaluation #3: 08/21/21 16:31 Dr Mirian South to admit to [facility] ED Medical Decision Making - Lab Data Result diagrams: 08/23/21 09:26 08/24/21 04:45 Vital Signs 08/21/21 08/21/21 08/21/21 08:21 08:31 08:33 Temperature 99.2 F Pulse Rate 67 62 81 Respiratory 16 14 21 Rate Blood Pressure Blood Pressure 153/81 [Right] O2 Sat by Pulse 100 100 Oximetry 08/21/21 08/21/21 08/21/21 08:34 08:35 08:36 Temperature 99.5 F Pulse Rate 88 78 Respiratory 19 14 Rate Blood Pressure 155/81 155/81 Blood Pressure [Right] O2 Sat by Pulse 100 100 Oximetry 08/21/21 08/21/21 08/21/21 08:37 08:39 08:41 Temperature Pulse Rate 101 H 80 70 Respiratory 22 22 25 H Rate Blood Pressure 155/81 155/81 155/81 Blood Pressure [Right] O2 Sat by Pulse 99 99 97 Oximetry 08/21/21 08:45 Temperature Pulse Rate Respiratory Rate Blood Pressure Blood Pressure [Right] O2 Sat by Pulse 97 Oximetry Lab Results 08/21/21 08/21/21 08/21/21 Range/Units 08:31 08:32 08:48 WBC 5.8 (4.5-11.0) K/mm3 RBC 4.69 (3.65-5.03) M/mm3 Hgb 12.8 (11.8-15.2) gm/dl Hct 38.2 (35.5-45.6) % MCV 81 L (84-94) fl MCH 27 L (28-32) pg MCHC 34 (32-34) % RDW 14.1 (13.2-15.2) % Plt Count 222 (140-440) K/mm3 Lymph % (Auto) 16.8 (13.4-35.0) % [place] % (Auto) 6.4 (0.0-7.3) % Eos % (Auto) 0.0 (0.0-4.3) % Baso % (Auto) 0.3 (0.0-1.8) % Lymph # (Auto) 1.0 L (1.2-5.4) K/mm3 [place] # (Auto) 0.4 (0.0-0.8) K/mm3 Eos # (Auto) 0.0 (0.0-0.4) K/mm3 Baso # (Auto) 0.0 (0.0-0.1) K/mm3 Seg Neutrophils % 76.5 H (40.0-70.0) % Seg Neutrophils # 4.5 (1.8-7.7) K/mm3 PT 13.2 (12.2-14.9) Sec. INR 0.90 (0.87-1.13) Sodium 136 L (137-145) mmol/L Potassium 2.6 L* (3.6-5.0) mmol/L Chloride 91.8 L (98-107) mmol/L Carbon Dioxide 28 (22-30) mmol/L Anion Gap 19 mmol/L BUN 7 L (9-20) mg/dL Creatinine 0.3 L (0.8-1.3) mg/dL Estimated GFR > 60 ml/min BUN/Creatinine Ratio 23 % Glucose 135 H (75-100) mg/dL Calcium 8.8 (8.4-10.2) mg/dL Magnesium (1.7-2.3) mg/dL Total Bilirubin 0.90 (0.1-1.2) mg/dL AST 42 H (5-40) units/L ALT 18 (7-56) units/L Alkaline Phosphatase 749 H (35-129) units/L Total Creatine Kinase (55-170) units/L Total Protein 7.7 (6.3-8.2) g/dL Albumin 3.9 (3.9-5) g/dL Albumin/Globulin Ratio 1.0 % 08/21/ Range/Units 08:48 WBC (4.5-11.0) K/mm3 RBC (3.65-5.03) M/mm3 Hgb (11.8-15.2) gm/dl Hct (35.5-45.6) % MCV (84-94) fl MCH (28-32) pg MCHC (32-34) % RDW (13.2-15.2) % Plt Count (140-440) K/mm3 Lymph % (Auto) (13.4-35.0) % [place] % (Auto) (0.0-7.3) % Eos % (Auto) (0.0-4.3) % Baso % (Auto) (0.0-1.8) % Lymph # (Auto) (1.2-5.4) K/mm3 [place] # (Auto) (0.0-0.8) K/mm3 Eos # (Auto) (0.0-0.4) K/mm3 Baso # (Auto) (0.0-0.1) K/mm3 Seg Neutrophils % (40.0-70.0) % Seg Neutrophils # (1.8-7.7) K/mm3 PT (12.2-14.9) Sec. INR (0.87-1.13) Sodium (137-145) mmol/L Potassium (3.6-5.0) mmol/L Chloride (98-107) mmol/L Carbon Dioxide (22-30) mmol/L Anion Gap mmol/L BUN (9-20) mg/dL Creatinine (0.8-1.3) mg/dL Estimated GFR ml/min BUN/Creatinine Ratio % Glucose (75-100) mg/dL Calcium (8.4-10.2) mg/dL Magnesium 2.50 H (1.7-2.3) mg/dL Total Bilirubin (0.1-1.2) mg/dL AST (5-40) units/L ALT (7-56) units/L Alkaline Phosphatase (35-129) units/L Total Creatine Kinase 92 (55-170) units/L Total Protein (6.3-8.2) g/dL Albumin (3.9-5) g/dL Albumin/Globulin Ratio % - EKG Data -: EKG Interpreted by [facility] EKG shows normal: sinus rhythm Rate: normal - EKG Data 08/21/21 10:08 EKG is interpreted 08: 31 Sinus rhythm, rate 63 bpm. Left axis deviation. Normal P wave axis. Left ventricular hypertrophy. Nonspecific T wave abnormalities. The QTC is prolonged. The MI intervals 141 ms. This is an abnormal EKG. This is not a STEMI. No prior EKGs available for my comparison. - Radiology Data Radiology results: pending, report reviewed, image reviewed CT ABDOMEN AND PELVIS WITH CONTRAST HISTORY: Acute abdominal pain, right lower quad 100 ml omni 300 . COMPARISON: None. TECHNIQUE: CT images of the abdomen and pelvis were obtained following administration of intravenous contrast. All CT scans at this location are performed using CT dose reduction for ALARA by means of automated exposure control. CONTRAST: 100 ml of intravenous contrast administered. FINDINGS: Lungs/bones: Emphysematous change with chronic changes in the lung bases Abdomen/pelvis: There is fatty infiltration the liver. Mild nodular appearance to the liver surface and enlargement could represent cirrhosis. Mild intra and extensor hepatic biliary ductal dilatation. Few small left renal cyst. Otherwise kidneys are normal. Spleen is mildly enlarged. Ad renal glands and pancreas appear normal. Upper GI tract is unremarkable. There is constipation throughout the colon. The appendix is not well seen. Bowel loops obscure visualization. Atherosclerotic changes seen throughout the aorta. No free fluid in the pelvis. IMPRESSION: 1. Constipation. The appendix is not visualized or evaluated well on this examination. Clinical correlation. 2. Hepatomegaly with hepatic steatosis. Mild intra and extra hepatic biliary ductal dilatation. Signer Name: Hoang Macias MD Signed: 08/21/2021 10:03 AM Workstation Name: [id number] MRI LUMBAR SPINE 08/21/2021 INDICATION / CLINICAL INFORMATION: Acute back pain, right lower extremity weakness. COMPARISON: None available. FINDINGS: GENERAL OBSERVATIONS: Unenhanced and enhanced MR images of the lumbar spine were obtained. Subtle left convex scoliosis is present. There is no evidence of acute abnormality. [id number] ANALYSIS: L5-S1: Moderate diffuse disc bulging. L4-5: Grade 1 anterolisthesis and prominent diffuse disc bulging associated with moderate facet degenerative changes. Severe stenosis of the central canal. L3-4: Moderate diffuse disc bulging and moderate central canal narrowing. L2-3: Unremarkable. L1-2: Unremarkable. BONE MARROW: Bone marrow signal is heterogeneous, consistent with degenerative change or bone marrow hyperplasia. SPINAL CORD/CAUDA EQUINA: Distal spinal cord is unremarkable. Tortuosity of cauda equina nerve roots is associated with the stenosis at the L4-5 level. PARASPINAL SOFT TISSUES: No significant abnormality. IMPRESSION: Degenerative changes as described above. Severe central canal stenosis at L4-5. Signer Name: Miles Antunez MD Signed: 08/21/2021 2:16 PM MRI THORACIC SPINE 08/21/2021 INDICATION / CLINICAL INFORMATION: Acute back pain, right lower extremity weakness. COMPARISON: None available. FINDINGS: GENERAL OBSERVATIONS: Unenhanced and enhanced MR images of the thoracic spine were obtained. At T10, there is evidence of osseous lesion, with expansion of the right pedicle and lamina, and bone marrow signal change throughout the T10 vertebral body. There is evidence of extraosseous epidural extension, resulting in moderately severe narrowing of the canal and displacement of the spinal cord towards the left. The appearance is consistent with metastatic disease. Bone marrow signal throughout the thoracic spine is very heterogeneous, with patchy areas of decreased signal. Possibility of diffuse osseous involvement with metastatic disease or myeloma must be considered. PARASPINAL SOFT TISSUES: No sign ificant abnormality. IMPRESSION: Diffuse osseous heterogeneity worrisome for metastatic disease. Prominent involvement at T10 with extraosseous epidural extension and canal stenosis. Signer Name: Miles Antunez MD Signed: 08/21/2021 2:25 PM Workstation Name: [id number] Critical Care Time: Yes Critical care time in (mins) excluding proc time.: 45 Critical care attestation.: If time is entered above; I have spent that time in minutes in the direct care of this critically ill patient, excluding procedure time. Critical Care Time: Critical care time includes multiple bedside reevaluations, interpretation of laboratory studies, radiology studies, and discussion with consulting services, including neurosurgery, for patient with metastatic cancer, with spinal cord compromise. 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
[2021-08-21] MEDS ORDERED: SODIUM CHLORIDE 0.9% 500 ML 500 ML IV ONE (09:03)
[2021-08-21] MEDS ORDERED: MORPHINE 4 MG/1 ML INJ IV ONE (09:03)
[2021-08-21] MEDS ORDERED: ONDANSETRON 4 MG/2 ML INJ IV ONE (09:03)
[2021-08-21 09:24] LABS: Basophils % (Auto) 0.3 % (0.0-1.8); Hematocrit 38.2 % (35.5-45.6); Hemoglobin 12.8 gm/dl (11.8-15.2); Lymphocytes % (Auto) 16.8 % (13.4-35.0); Mean Corpuscular HGB Conc 34 % (32-34); Mean Corpuscular Volume 81 fl (84-94); Monocytes # (Auto) 0.4 K/mm3 (0.0-0.8); Monocytes % (Auto) 6.4 % (0.0-7.3); Platelet Count 222 K/mm3 (140-440); Red Blood Count 4.69 M/mm3 (3.65-5.03); Red Cell Distribution Width 14.1 % (13.2-15.2)
[2021-08-21 09:35] LABS: INR 0.9 (0.87-1.13)
[2021-08-21 09:40] LABS: Alanine Aminotransferase 18 units/L (7-56); Albumin 3.9 g/dL (3.9-5); Blood Urea Nitrogen 7 mg/dL (9-20); Calcium 8.8 mg/dL (8.4-10.2); Hemolysis Index 28
[2021-08-21 09:42] LABS: BUN/Creatinine Ratio 23
[2021-08-21] MEDS ORDERED: POTASSIUM CHLORIDE ER 20 MEQ TAB PO ONE ×2 (10:03→20:40)
[2021-08-21] MEDS ORDERED: HYDROmorphone 1 MG/1 ML INJ IV ONE ×3 (10:54→13:05)
[2021-08-21] MEDS: POTASSIUM CHLORIDE 10 MEQ 10 MEQ/100 ML BAG IV SCH ×5 (11:02→23:08)
--- NOTE | 2021-08-21 11:08 | Cat Scan Report ---
CT ABDOMEN AND PELVIS WITH CONTRAST HISTORY: Acute abdominal pain, right lower quad 100 ml omni 300 . COMPARISON: None. TECHNIQUE: CT images of the abdomen and pelvis were obtained following administration of intravenous contrast. All CT scans at this location are performed using CT dose reduction for ALARA by means of automated exposure control. CONTRAST: 100 ml of intravenous contrast administered. FINDINGS: Lungs/bones: Emphysematous change with chronic changes in the lung bases Abdomen/pelvis: There is fatty infiltration the liver. Mild nodular appearance to the liver surface and enlargement could represent cirrhosis. Mild intra and extensor hepatic biliary ductal dilatation. Few small left renal cyst. Otherwise kidneys are normal. Spleen is mildly enlarged. Adrenal glands a nd pancreas appear normal. Upper GI tract is unremarkable. There is constipation throughout the colon . The appendix is not well seen. Bowel loops obscure visualization. Atherosclerotic changes seen thro ughout the aorta. No free fluid in the pelvis. IMPRESSION: 1. Constipation. The appendix is not visualized or evaluated well on this examination. Clinical corre lation. 2. Hepatomegaly with hepatic steatosis. Mild intra and extra hepatic biliary ductal dilatation. Signer Name: Hoang Macias MD Signed: 08/21/2021 11:03 AM Workstation Name: [id number]
[2021-08-21 11:24] LABS: Bilirubin,Urine NEG (Negative); Blood,Urine NEG (Negative); Color,Urine Yellow (Yellow); Mucus,Urine FEW /HPF
--- NOTE | 2021-08-21 15:20 | Magnetic Resonance Report ---
MRI LUMBAR SPINE 08/21/2021 INDICATION / CLINICAL INFORMATION: Acute back pain, right lower extremity weakness. COMPARISON: None available. FINDINGS: GENERAL OBSERVATIONS: Unenhanced and enhanced MR images of the lumbar spine were obtained. Subtle left convex scoliosis is present. There is no evidence of acute abnormality. [id number] ANALYSIS: L5-S1: Moderate diffuse disc bulging. L4-5: Grade 1 anterolisthesis and prominent diffuse disc bulging associated with moderate facet degen erative changes. Severe stenosis of the central canal. L3-4: Moderate diffuse disc bulging and moderate central canal narrowing. L2-3: Unremarkable. L1-2: Unremarkable. BONE MARROW: Bone marrow signal is heterogeneous, consistent with degenerative change or bone marrow hyperplasia. SPINAL CORD/CAUDA EQUINA: Distal spinal cord is unremarkable. Tortuosity of cauda equina nerve roots is associated with the stenosis at the L4-5 level. PARASPINAL SOFT TISSUES: No significant abnormality. IMPRESSION: Degenerative changes as described above. Severe central canal stenosis at L4-5. Signer Name: Miles Antunez MD Signed: 08/21/2021 3:16 PM Workstation Name: [id number]
--- NOTE | 2021-08-21 15:30 | Magnetic Resonance Report ---
MRI THORACIC SPINE 08/21/2021 INDICATION / CLINICAL INFORMATION: Acute back pain, right lower extremity weakness. COMPARISON: None available. FINDINGS: GENERAL OBSERVATIONS: Unenhanced and enhanced MR images of the thoracic spine were obtained. At T10, there is evidence of osseous lesion, with expansion of the right pedicle and lamina, and bone marrow signal change throughout the T10 vertebral body. There is evidence of extraosseous epidural e xtension, resulting in moderately severe narrowing of the canal and displacement of the spinal cord t owards the left. The appearance is consistent with metastatic disease. Bone marrow signal throughout the thoracic spine is very heterogeneous, with patchy areas of decrease d signal. Possibility of diffuse osseous involvement with metastatic disease or myeloma must be consi dered. PARASPINAL SOFT TISSUES: No significant abnormality. IMPRESSION: Diffuse osseous heterogeneity worrisome for metastatic disease. Prominent involvement at T10 with ext raosseous epidural extension and canal stenosis. Signer Name: Miles Antunez MD Signed: 08/21/2021 3:25 PM Workstation Name: [id number]
[2021-08-21] MEDS ORDERED: methylPREDNISolone Sod Succinate 40 MG/1 ML INJ IV ONE (16:25)
--- NOTE | 2021-08-21 20:31 | History and Physical Report ---
History of Present Illness Date of examination: 08/21/21 Date of admission: 08/21/21 16:31 Chief complaint: Mid back pain for 1 month History of present illness: 65-year-old male with history of hypertension, GERD and prostate cancer with metastasis on chemotherapy comes in for mid back pain and lower back pain with radiation of pain into the right lower extremity. Also right lower extremity weakness for 1 month but more so for the last 2 days. Patient was able to walk till yesterday. Now not able to walk. Pain is about 10 on a scale of 1-10. Any movement or exacerbating factor. Complete rest is a relieving factor. No fever or chills. No dysuria. No cough. Patient is Covid vaccinated. - Past Medical History --Hypertension: Yes (Lisinopril) --Diabetes: Yes --Hx of Cancer: Yes (Stage 4 Prostate Cancer) -Past surgical history none - Social History --Smoking Status: Current Every Day Smoker (We discussed tobacco cessation x3 minutes) --Substance Use Type: Alcohol, Prescribed -Family history --none Review of Systems ROS: Stated complaint: ABDOMINAL PAIN Other details as noted in HPI Constitutional: malaise, weakness. denies: fever Eyes: denies: eye discharge ENT: denies: epistaxis Respiratory: denies: cough Cardiovascular: denies: chest pain Gastrointestinal: abdominal pain Musculoskeletal: back pain Neurological: weakness Medications and Allergies Allergies Allergy/AdvReac Type Severity Reaction Status Date / Time No Known Allergies Allergy Verified 08/22/21 03:39 Home Medications Medication Instructions Recorded Confirmed Last Taken Type Omeprazole [PriLOSEC] 20 mg PO QDAY #30 capsule. 10/06/14 1 Day Ago Rx ~08/05/21 Abiraterone Acetate 250 mg PO DAILY 08/22/21 08/22/21 08/20/21 09:00 History DULoxetine 50 mg PO DAILY 08/22/21 08/22/21 08/20/21 09:00 History Gabapentin [Neurontin] 800 mg PO TID 08/22/21 08/22/21 08/20/21 09:00 History Lisinopril 20 mg PO DAILY 08/22/21 08/22/21 08/20/21 09:00 History Pyridoxine HCl (Vitamin B6) mg PO DAILY 08/22/21 08/20/21 09:00 History [Vitamin B6] amLODIPine 10 mg PO DAILY 08/22/21 08/22/21 08/20/21 09:00 History oxyCODONE 10 mg PO PRN 08/22/21 08/22/21 08/20/21 09:00 History Exam - Constitutional Vitals: Temp Pulse Resp BP Pulse Ox 99.5 F 70 25 H 144/70 95 08/21/21 08:36 08/21/21 08:41 08/21/21 08:41 08/21/21 18:47 08/21/21 18:47 General appearance: Present: no acute distress, well-nourished - EENT Eyes: Present: PERRL ENT: hearing intact, clear oral mucosa - Neck Neck: Present: supple, normal ROM - Respiratory Respiratory effort: normal Respiratory: bilateral: CTA - Cardiovascular Heart rate: 78 Rhythm: regular Heart Sounds: Present: S1 & S2. Absent: rub, click - Extremities Extremities: no ischemia, pulses intact, pulses symmetrical, No edema Peripheral Pulses: within normal limits - Abdominal General gastrointestinal: Present: soft, non-tender, non-distended, normal bowel sounds Male genitourinary: Present: normal - Integumentary Integumentary: Present: clear, warm, dry - Musculoskeletal Musculoskeletal: right sided weakness (Right lower extremity weakness, 3/5 power) - Psychiatric Psychiatric: appropriate mood/affect, intact judgment & insight - Neurologic Neurologic: CNII-XII intact, moves all extremities Results - Labs CBC & Chem 7: 08/21/21 08:32 08/21/21 08:31 Labs: Laboratory Last Values WBC 5.8 K/mm3 (4.5-11.0) 08/21/21 08:32 RBC 4.69 M/mm3 (3.65-5.03) 08/21/21 08:32 Hgb 12.8 gm/dl (11.8-15.2) 08/21/21 08:32 Hct 38.2 % (35.5-45.6) 08/21/21 08:32 MCV 81 fl (84-94) L 08/21/21 08:32 MCH 27 pg (28-32) L 08/21/21 08:32 MCHC 34 % (32-34) 08/21/21 08:32 RDW 14.1 % (13.2-15.2) 08/21/21 08:32 Plt Count 222 K/mm3 (140-440) 08/21/21 08:32 Lymph % (Auto) 16.8 % (13.4-35.0) 08/21/21 08:32 [place] % (Auto) 6.4 % (0.0-7.3) 08/21/21 08:32 Eos % (Auto) 0.0 % (0.0-4.3) 08/21/21 08:32 Baso % (Auto) 0.3 % (0.0-1.8) 08/21/21 08:32 Lymph # (Auto) 1.0 K/mm3 (1.2-5.4) L 08/21/21 08:32 [place] # (Auto) 0.4 K/mm3 (0.0-0.8) 08/21/21 08:32 Eos # (Auto) 0.0 K/mm3 (0.0-0.4) 08/21/21 08:32 Baso # (Auto) 0.0 K/mm3 (0.0-0.1) 08/21/21 08:32 Seg Neutrophils % 76.5 % (40.0-70.0) H 08/21/21 08:32 Seg Neutrophils # 4.5 K/mm3 (1.8-7.7) 08/21/21 08:32 PT 13.2 Sec. (12.2-14.9) 08/21/21 08:48 INR 0.90 (0.87-1.13) 08/21/21 08:48 Sodium 136 mmol/L (137-145) L 08/21/21 08:31 Potassium 2.6 mmol/L (3.6-5.0) L* 08/21/21 08:31 Chloride 91.8 mmol/L (98-107) L 08/21/21 08:31 Carbon Dioxide 28 mmol/L (22-30) 08/21/21 08:31 Anion Gap 19 mmol/L 08/21/21 08:31 BUN 7 mg/dL (9-20) L 08/21/21 08:31 Creatinine 0.3 mg/dL (0.8-1.3) L 08/21/21 08:31 Estimated GFR > 60 ml/min 08/21/21 08:31 BUN/Creatinine Ratio 23 % 08/21/21 08:31 Glucose 135 mg/dL (75-100) H 08/21/21 08:31 Lactic Acid 1.30 mmol/L (0.7-2.0) 08/21/21 09:31 Calcium 8.8 mg/dL (8.4-10.2) 08/21/21 08:31 Magnesium 2.50 mg/dL (1.7-2.3) H 08/21/21 08:48 Total Bilirubin 0.90 mg/dL (0.1-1.2) 08/21/21 08:31 AST 42 units/L (5-40) H 08/21/21 08:31 ALT 18 units/L (7-56) 08/21/21 08:31 Alkaline Phosphatase 749 units/L (35-129) H 08/21/21 08:31 Total Creatine Kinase 92 units/L (55-170) 08/21/21 08:48 Total Protein 7.7 g/dL (6.3-8.2) 08/21/21 08:31 Albumin 3.9 g/dL (3.9-5) 08/21/21 08:31 Albumin/Globulin Ratio 1.0 % 08/21/21 08:31 Urine Color Yellow (Yellow) 08/21/21 Unknown Urine Turbidity Clear (Clear) 08/21/21 Unknown Urine pH 6.0 (5.0-7.0) 08/21/21 Unknown Ur Specific [place] 1.030 (1.003-1.030) 08/21/21 Unknown Urine Protein 30 mg/dl mg/dL (Negative) 08/21/21 Unknown Urine Glucose (UA) Neg mg/dL (Negative) 08/21/21 Unknown Urine Ketones 20 mg/dL (Negative) 08/21/21 Unknown Urine Blood Neg (Negative) 08/21/21 Unknown Urine Nitrite Neg (Negative) 08/21/21 Unknown Urine Bilirubin Neg (Negative) 08/21/21 Unknown Urine Urobilinogen 4.0 mg/dL (<2.0) 08/21/21 Unknown Ur Leukocyte Esterase Neg (Negative) 08/21/21 Unknown Urine WBC (Auto) 4.0 /HPF (0.0-6.0) 08/21/21 Unknown Urine RBC (Auto) 11.0 /HPF (0.0-6.0) 08/21/21 Unknown U Epithel Cells (Auto) 8.0 /HPF (0-13.0) 08/21/21 Unknown Urine Mucus Few /HPF 08/21/21 Unknown Short CBC 08/21/21 Range/Units 08:32 WBC 5.8 (4.5-11.0) K/mm3 Hgb 12.8 (11.8-15.2) gm/dl Hct 38.2 (35.5-45.6) % Plt Count 222 (140-440) K/mm3 BMP 08/21/21 08:31 Sodium 136 L Potassium 2.6 L* Chloride 91.8 L Carbon Dioxide 28 BUN 7 L Creatinine 0.3 L Glucose 135 H Calcium 8.8 Cardiac Enzymes 08/21/21 Range/Units 08:48 Total Creatine Kinase 92 (55-170) units/L Liver Function 08/21/21 Range/Units 08:31 Total Bilirubin 0.90 (0.1-1.2) mg/dL AST 42 H (5-40) units/L ALT 18 (7-56) units/L Alkaline Phosphatase 749 H (35-129) units/L Albumin 3.9 (3.9-5) g/dL Urine 08/21/21 Range/Units Unknown Urine Color Yellow (Yellow) Urine pH 6.0 (5.0-7.0) Ur Specific [place] 1.030 (1.003-1.030) Urine Protein 30 mg/dl (Negative) mg/dL Urine Glucose (UA) Neg (Negative) mg/dL Microbiology: Microbiology 08/21/21 09:31 Peripheral/Venous Blood Culture - Preliminary Culture in Progress 08/21/21 09:31 Peripheral/Venous Blood Culture - Preliminary Culture in Progress - Imaging and Cardiology CT scan - abdomen: report reviewed Imaging and Cardiology: Thoracic spine MRI At T10 there is evidence of osseous lesion with expansion of the right pedicle and lamina and bone marrow signal change throughout the T10 vertebral body. There is evidence of extraosseous epidural extension resulting in moderately severe narrowing of the canal and displacement of the spinal cord towards the left. The appearance of consistent with metastatic disease. Input final impression diffuse osseous heterogenicity worrisome for metastatic disease. Prominent involvement of T10 with extraosseous epidural extension and canal stenosis. Lumbar spine MRI Degenerative changes are described Severe central canal stenosis at L4-L5 L4-L5 grade 1 anterolisthesis and prominent diffuse disc bulging associated with moderate facet degenerative changes. Abdomen/pelvis CT Constipation Hepatomegaly with hepatic steatosis Mild intra and extrahepatic biliary ductal dilation. Severe stenosis of the central canal. 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 Current Visit: Yes Status: Acute Plan to address problem: Patient has stage IV prostate cancer On chemotherapy Pain control (3) Hypokalemia Current Visit: Yes Status: Acute Plan to address problem: Supplemented by IV potassium and oral potassium (4) Lower extremity weakness Current Visit: Yes Status: Acute Qualifiers: Laterality: right Qualified Code(s): R29.898 - Other symptoms and signs involving the musculoskeletal system Plan to address problem: Secondary to T10 compression and also lumbar spinal stenosis (5) Hypertension Current Visit: Yes Status: Chronic Qualifiers: Hypertension type: primary hypertension Qualified Code(s): I10 - Essential (primary) hypertension Plan to address problem: Continue antihypertensives and adjust medications (6) T2DM (type 2 diabetes mellitus) Current Visit: Yes Status: Chronic Qualifiers: Diabetes mellitus nursing home insulin use: unspecified nursing home insulin use status Plan to address problem: Continue coverage (7) Hyponatremia Current Visit: Yes Status: Acute Plan to address problem: Mild IV normal saline (8) Peripheral neuropathy Current Visit: Yes Status: Chronic Qualifiers: Peripheral neuropathy type: polyneuropathy, other Qualified Code(s): G62.89 - Other specified polyneuropathies Plan to address problem: On gabapentin Continue same (9) DVT prophylaxis Current Visit: Yes Status: Acute Plan to address problem: On SCDs and GI prophylaxis Heparin to be initiated after surgery
[2021-08-21] MEDS ORDERED: METOCLOPRAMIDE 10 MG/2 ML INJ IV PRN (20:33)
[2021-08-21] MEDS ORDERED: ONDANSETRON 4 MG/2 ML INJ IV PRN (20:33)
[2021-08-21] MEDS ORDERED: ACETAMINOPHEN 325 MG TAB PO PRN (20:33)
[2021-08-21] MEDS ORDERED: MAGNESIUM SULFATE 2 GM/50 ML BAG IV ONE (20:40)
[2021-08-21] MEDS ORDERED: NON-FORMULARY EACH (Omeprazole [Prilosec] 20 MG Capsule.Dr) PO SCH (20:45)
[2021-08-21] MEDS: PANTOPRAZOLE 20 MG TAB PO SCH (23:01)
[2021-08-21] MEDS: methylPREDNISolone Sod Succinate 40 MG/1 ML INJ IV SCH (23:01)
[2021-08-21] MEDS: HEPARIN 5,000 UNIT/1 ML VIAL SUB-Q SCH (23:01)
[2021-08-21] MEDS: D5W/0.45% NACL/KCL 20 MEQ 20 MEQ/1,000 ML BAG IV SCH (23:09)
[2021-08-21] MEDS: amLODIPine 5 MG TAB PO SCH (23:13)
[2021-08-21] MEDS: HYDROmorphone 1 MG/1 ML INJ IV PRN (23:14)
[2021-08-22] MEDS: POTASSIUM CHLORIDE 10 MEQ 10 MEQ/100 ML BAG IV SCH ×3 (00:10→02:20)
[2021-08-22 06:28] LABS: Basophils % (Auto) 0.1 % (0.0-1.8); Hematocrit 37.3 % (35.5-45.6); Hemoglobin 12.1 gm/dl (11.8-15.2); Lymphocytes # (Auto) 0.7 K/mm3 (1.2-5.4); Lymphocytes % (Auto) 18.5 % (13.4-35.0); Mean Corpuscular HGB Conc 33 % (32-34); Mean Corpuscular Volume 82 fl (84-94); Monocytes # (Auto) 0.1 K/mm3 (0.0-0.8); Monocytes % (Auto) 2.5 % (0.0-7.3); Platelet Count 240 K/mm3 (140-440); Red Blood Count 4.53 M/mm3 (3.65-5.03); Red Cell Distribution Width 13.9 % (13.2-15.2)
[2021-08-22] MEDS: methylPREDNISolone Sod Succinate 40 MG/1 ML INJ IV SCH ×3 (06:30→21:51)
[2021-08-22] MEDS: HYDROmorphone 1 MG/1 ML INJ IV PRN (06:37)
[2021-08-22 06:43] LABS: Alanine Aminotransferase 19 units/L (7-56); Albumin 3.8 g/dL (3.9-5); BUN/Creatinine Ratio 23; Blood Urea Nitrogen 9 mg/dL (9-20); Calcium 8.7 mg/dL (8.4-10.2); Hemolysis Index 4
[2021-08-22] MEDS ORDERED: HEPARIN/NS 5000 UNIT/500ML 0 ML IR ONE (08:22)
[2021-08-22] MEDS ORDERED: MIDAZOLAM 2 MG/2 ML INJ ONE (08:23)
[2021-08-22] MEDS ORDERED: HEPARIN 10,000 UNITS/10 ML VIAL ONE (08:23)
[2021-08-22] MEDS ORDERED: LIDOCAINE (2%) 20 MG/1 ML VIAL 20 ML MDV INFILTRATI ONE (08:24)
[2021-08-22] MEDS ORDERED: VERAPAMIL 5 MG/2 ML INJ ONE (08:24)
[2021-08-22] MEDS ORDERED: NITROGLYCERIN SYRINGE 0 ML ONE (08:24)
[2021-08-22] MEDS ORDERED: fentaNYL 100 MCG/2 ML INJ ONE ×2 (08:24→15:59)
[2021-08-22] MEDS ORDERED: EPINEPHrine 1 MG/10 ML SYRINGE ONE (08:25)
[2021-08-22] MEDS ORDERED: ATROPINE 0.1% (1 MG/10 ML) CARDIAC SYRINGE ONE (08:25)
[2021-08-22] MEDS ORDERED: PHENYLEPHRINE/NS 1,000 MCG/10 ML SYRINGE (OR USE) IV ONE (08:25)
--- NOTE | 2021-08-22 09:02 | Electrocardiograph Report ---
[facility] Test Date: 2021-08-21 Test Time: 08:31:14 Pat Name: KRISTINA JOHNSON Department: Room: [facility] Gender: M Contact Center Team Lead: : 1955 Requested By: KRISTINA CUELLO Order Number: [id number] Reading MD: Alexx Beaulieu Measurements Intervals [place] Rate: 63 P: 16 TX: 141 QRS: -38 QRSD: 99 T: -55 QT: 519 QTc: 533 Interpretive Statements Sinus rhythm Left axis deviation Nonspecific repol abnormality, diffuse leads Prolonged QT interval No previous ECG available for comparison Electronically Signed On 08-22-2021 9:02:26 EST by Alexx Beaulieu
--- NOTE | 2021-08-22 09:37 | Consultation ---
History of Present Illness Consult date: 08/22/21 Requesting physician: KRISTINA CUELLO Reason for Consult: Spine metastasis Chief complaint: leg weakness History of present illness: Kristina De is a 66 y/o Female that presented to [facility] ER on yesterday with complaints of progressive lower extremity weakness. He has a history of prosate cancer, diagnosed 7 years ago. He was treated at [facility], undergoing chemotherapy but reportedly no surgery or radiation. He has experienced worsening groin pain and b/l LE weakness over the past week. He has been unable to walk for the past 2 days. MRI studies revealed a dorsolateral mass at T10, which causes severe canal stenosis w/ cord displacement. Neurosurgery was consulted for further evaluation. Past History Past Medical History: other (Prostate cancer) Medications and Allergies Allergies Allergy/AdvReac Type Severity Reaction Status Date / Time No Known Allergies Allergy Verified 08/22/21 03:39 Home Medications Medication Instructions Recorded Confirmed Last Taken Type Omeprazole [PriLOSEC] 20 mg PO QDAY #30 capsule. 10/06/14 1 Day Ago Rx ~08/05/21 Abiraterone Acetate 250 mg PO DAILY 08/22/21 08/22/21 08/20/21 09:00 History DULoxetine 50 mg PO DAILY 08/22/21 08/22/21 08/20/21 09:00 History Gabapentin [Neurontin] 800 mg PO TID 08/22/21 08/22/21 08/20/21 09:00 History Lisinopril 20 mg PO DAILY 08/22/21 08/22/21 08/20/21 09:00 History Pyridoxine HCl (Vitamin B6) mg PO DAILY 08/22/21 08/20/21 09:00 History [Vitamin B6] amLODIPine 10 mg PO DAILY 08/22/21 08/22/21 08/20/21 09:00 History oxyCODONE 10 mg PO PRN 08/22/21 08/22/21 08/20/21 09:00 History Active Meds: Active Medications Acetaminophen (Acetaminophen 325 Mg Tab) 650 mg PO Q4H PRN PRN Reason: Pain MILD(1-3)/Fever >100.5/[place] Hydrocodone Bitart/Acetaminophen (Hydrocodone/Acetaminophen 5-325 Mg Tab) 2 each PO Q6H PRN PRN Reason: Pain, Moderate (4-6) Amlodipine Besylate (Amlodipine 5 Mg Tab) 5 mg PO DAILY [facility] Last Admin: 08/21/21 23:13 Dose: 5 mg Documented by: Heparin Sodium (Porcine) (Heparin 5,000 Unit/1 Ml Vial) 5,000 unit SUB-Q Q12HR [facility] Last Admin: 08/21/21 23:01 Dose: 5,000 unit Documented by: Hydromorphone HCl (Hydromorphone 1 Mg/1 Ml Inj) 1 mg IV Q3H PRN PRN Reason: Pain , Severe (7-10) Last Admin: 08/22/21 06:37 Dose: 1 mg Documented by: Potassium Chloride/Dextrose/Sod Cl (D5w/0.45% Nacl/Kcl 20 Meq) 20 meq in 1,000 mls @ 100 mls/hr IV DIRECT [facility] Last Admin: 08/21/21 23:09 Dose: 100 mls/hr Documented by: Methylprednisolone Sodium Succinate (Methylprednisolone Sod Succinate 40 Mg/1 Ml Inj) 40 mg IV Q8HR [facility] Last Admin: 08/22/21 06:30 Dose: 40 mg Documented by: Metoclopramide HCl (Metoclopramide 10 Mg/2 Ml Inj) 10 mg IV Q6H PRN PRN Reason: Nausea And Vomiting Ondansetron HCl (Ondansetron 4 Mg/2 Ml Inj) 4 mg IV Q3H PRN PRN Reason: Nausea And Vomiting Pantoprazole Sodium (Pantoprazole 20 Mg Tab) 20 mg PO QDAY [facility] Last Admin: 08/21/21 23:01 Dose: 20 mg Documented by: Sodium Chloride (Sodium Chloride 0.9% 10 Ml Flush Syringe) 10 ml IV BID [facility] Last Admin: 08/21/21 23:04 Dose: 10 ml Documented by: Sodium Chloride (Sodium Chloride 0.9% 10 Ml Flush Syringe) 10 ml IV PRN PRN PRN Reason: LINE FLUSH Review of Systems All systems: negative (what is specified in HPI) Physical Examination - Vital Signs Vital Signs: Vital Signs Temp Pulse Resp BP Pulse Ox 99.2 F 67 16 153/81 100 08/21/21 08:21 08/21/21 08:21 08/21/21 08:21 08/21/21 08:21 08/21/21 08:21 - Physical Exam Narrative exam: seen and examined no acute distress NC/AT RRR breathing non-labored abdomen soft no cyanosis or clubbing A&Ox3 CNII-XII Intact RLE 3/5 HF, 3/5 KF/KE, 4/5 DF/PF LLE 4/5 HF, 4/5 KF/KE, 5/5 DF/PF sensation intact to light touch no clonus reflexes exaggerated on RLE, patella 3+ Results - Laboratory Findings CBC and BMP: 08/22/21 05:33 08/22/21 05:33 Abnormal Lab Findings: Abnormal Labs 08/21/21 08/21/21 08/21/21 08:31 08:32 08:48 WBC MCV 81 L MCH 27 L Lymph # (Auto) 1.0 L Seg Neutrophils % 76.5 H Sodium 136 L Potassium 2.6 L* Chloride 91.8 L BUN 7 L Creatinine 0.3 L Glucose 135 H POC Glucose Magnesium 2.50 H AST 42 H Alkaline Phosphatase 749 H Albumin 08/21/21 08/22/21 08/22/21 21:28 05:33 05:33 WBC 3.8 L MCV 82 L MCH 27 L Lymph # (Auto) 0.7 L Seg Neutrophils % 78.9 H Sodium Potassium Chloride BUN Creatinine 0.4 L Glucose 149 H POC Glucose 130 H Magnesium AST Alkaline Phosphatase 638 H Albumin 3.8 L 08/22/21 08/22/21 05:33 08:02 WBC MCV MCH Lymph # (Auto) Seg Neutrophils % Sodium Potassium Chloride BUN Creatinine Glucose POC Glucose 171 H Magnesium 2.40 H AST Alkaline Phosphatase Albumin Assessment and Plan 66 y/o M w/ progressive leg weakness in the setting of prostate cancer, imaging studies consistent with 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
[2021-08-22] MEDS: amLODIPine 5 MG TAB PO SCH (09:45)
[2021-08-22] MEDS: PANTOPRAZOLE 20 MG TAB PO SCH (09:46)
[2021-08-22] MEDS: HEPARIN 5,000 UNIT/1 ML VIAL SUB-Q SCH (09:47)
--- NOTE | 2021-08-22 10:00 | Progress Note ---
Assessment and Plan Assessment and plan: 65-year-old male with history of hypertension, GERD and prostate cancer with metastasis on chemotherapy comes in for mid back pain and lower back pain with radiation of pain into the right lower extremity. Also right lower extremity weakness for 1 month but more so for the last 2 days. Patient was able to walk till yesterday. Now not able to walk. Pain is about 10 on a scale of 1-10. Any movement or exacerbating factor. Complete rest is a relieving factor. No fever or chills. No dysuria. No cough. Patient is Covid vaccinated. Thoracic spine MRI At T10 there is evidence of osseous lesion with expansion of the right pedicle and lamina and bone marrow signal change throughout the T10 vertebral body. There is evidence of extraosseous epidural extension resulting in moderately severe narrowing of the canal and displacement of the spinal cord towards the left. The appearance of consistent with metastatic disease. Input final impression diffuse osseous heterogenicity worrisome for metastatic disease. Prominent involvement of T10 with extraosseous epidural extension and canal stenosis. Lumbar spine MRI Degenerative changes are described Severe central canal stenosis at L4-L5 L4-L5 grade 1 anterolisthesis and prominent diffuse disc bulging associated with moderate facet degenerative changes. 08/22: Patient seen and examined this morning still with persistent bilateral lower extremity weakness unable to ambulate. Considering MRI findings and discussion with neurosurgeon patient will be proceeding for laminectomy either here based on the OR staffing or transfer to [facility] which I have spoken to them and they have accepted the patient for hospitalist admission with neurosurgery consultation to Dr. Ambriz. For now we will continue steroids as recommended by Dr. Ambriz. Physical therapy evaluation post surgery Abdomen/pelvis CT Constipation Hepatomegaly with hepatic steatosis Mild intra and extrahepatic biliary ductal dilation. Severe stenosis of the central canal. 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 Current Visit: Yes Status: Acute Plan to address problem: Patient has stage IV prostate cancer On chemotherapy Pain control (3) Hypokalemia Current Visit: Yes Status: Acute Plan to address problem: Supplemented by IV potassium and oral potassium (4) Lower extremity weakness Current Visit: Yes Status: Acute Qualifiers: Laterality: right Qualified Code(s): R29.898 - Other symptoms and signs involving the musculoskeletal system Plan to address problem: Secondary to T10 compression and also lumbar spinal stenosis (5) Hypertension Current Visit: Yes Status: Chronic Qualifiers: Hypertension type: primary hypertension Qualified Code(s): I10 - Essential (primary) hypertension Plan to address problem: Continue antihypertensives and adjust medications (6) T2DM (type 2 diabetes mellitus) Current Visit: Yes Status: Chronic Qualifiers: 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 insulin use: unspecified [facility] insulin use status Plan to address problem: Continue coverage (7) Hyponatremia Current Visit: Yes Status: Acute Plan to address problem: Mild IV normal saline (8) Peripheral neuropathy Current Visit: Yes Status: Chronic Qualifiers: Peripheral neuropathy type: polyneuropathy, other Qualified Code(s): G62.89 - Other specified polyneuropathies Plan to address problem: On gabapentin Continue same (9): 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 Discussed the plan of care for him including possibility of transfer to a higher level of care he verbalized understanding Hospitalist Physical - Physical exam Narrative exam: VITAL SIGNS: Reviewed. GENERAL: The patient appears normally developed, Vital signs as documented. HEAD: No signs of head trauma. EYES: Pupils are equal. Extraocular motions intact. EARS: Hearing grossly intact. MOUTH: Oropharynx is normal. NECK: No adenopathy, no JVD. CHEST: Chest with clear breath sounds bilaterally. No wheezes, rales, or rhonchi. CARDIAC: Regular rate and rhythm. S1 and S2, without murmurs, gallops, or rubs. VASCULAR: No Edema. Peripheral pulses normal and equal in all extremities. ABDOMEN: Soft, non tender and non distended. No rebound or guarding, and no masses palpated. Bowel Sounds normal. MUSCULOSKELETAL: Limited gait. Motor strength 3/5 on the right lower extremity 4/5 on the left. Extremities without clubbing, cyanosis or edema. NEUROLOGIC EXAM: Alert and oriented x 3 some paresthesias exist on the lower extremity. Speech normal. Follows commands. PSYCHIATRIC: Mood normal. SKIN: detail exam as documented in skin assessment - Constitutional Vitals: Temp Pulse Resp BP Pulse Ox 98.7 F 66 20 140/77 100 08/22/21 09:51 08/22/21 09:51 08/22/21 09:51 08/22/21 09:51 08/22/21 05:40 General appearance: Present: no acute distress, well-nourished Results - Labs CBC & Chem 7: 08/22/21 05:33 08/22/21 05:33 Labs: Laboratory Last Values WBC 3.8 K/mm3 (4.5-11.0) L 08/22/21 05:33 RBC 4.53 M/mm3 (3.65-5.03) 08/22/21 05:33 Hgb 12.1 gm/dl (11.8-15.2) 08/22/21 05:33 Hct 37.3 % (35.5-45.6) 08/22/21 05:33 MCV 82 fl (84-94) L 08/22/21 05:33 MCH 27 pg (28-32) L 08/22/21 05:33 MCHC 33 % (32-34) 08/22/21 05:33 RDW 13.9 % (13.2-15.2) 08/22/21 05:33 Plt Count 240 K/mm3 (140-440) 08/22/21 05:33 Lymph % (Auto) 18.5 % (13.4-35.0) 08/22/21 05:33 [place] % (Auto) 2.5 % (0.0-7.3) 08/22/21 05:33 Eos % (Auto) 0.0 % (0.0-4.3) 08/22/21 05:33 Baso % (Auto) 0.1 % (0.0-1.8) 08/22/21 05:33 Lymph # (Auto) 0.7 K/mm3 (1.2-5.4) L 08/22/21 05:33 [place] # (Auto) 0.1 K/mm3 (0.0-0.8) 08/22/21 05:33 Eos # (Auto) 0.0 K/mm3 (0.0-0.4) 08/22/21 05:33 Baso # (Auto) 0.0 K/mm3 (0.0-0.1) 08/22/21 05:33 Seg Neutrophils % 78.9 % (40.0-70.0) H 08/22/21 05:33 Seg Neutrophils # 3.0 K/mm3 (1.8-7.7) 08/22/21 05:33 PT 13.2 Sec. (12.2-14.9) 08/21/21 08:48 INR 0.90 (0.87-1.13) 08/21/21 08:48 Sodium 140 mmol/L (137-145) 08/22/21 05:33 Potassium 4.5 mmol/L (3.6-5.0) D 08/22/21 05:33 Chloride 102.3 mmol/L (98-107) 08/22/21 05:33 Carbon Dioxide 25 mmol/L (22-30) 08/22/21 05:33 Anion Gap 17 mmol/L 08/22/21 05:33 BUN 9 mg/dL (9-20) 08/22/21 05:33 Creatinine 0.4 mg/dL (0.8-1.3) L 08/22/21 05:33 Estimated GFR > 60 ml/min 08/22/21 05:33 BUN/Creatinine Ratio 23 % 08/22/21 05:33 Glucose 149 mg/dL (75-100) H 08/22/21 05:33 POC Glucose 171 mg/dL (70-105) H 08/22/21 08:02 Lactic Acid 1.30 mmol/L (0.7-2.0) 08/21/21 09:31 Calcium 8.7 mg/dL (8.4-10.2) 08/22/21 05:33 Magnesium 2.40 mg/dL (1.7-2.3) H 08/22/21 05:33 Total Bilirubin 0.60 mg/dL (0.1-1.2) 08/22/21 05:33 AST 38 units/L (5-40) 08/22/21 05:33 ALT 19 units/L (7-56) 08/22/21 05:33 Alkaline Phosphatase 638 units/L (35-129) H 08/22/21 05:33 Total Creatine Kinase 92 units/L (55-170) 08/21/21 08:48 Total Protein 6.6 g/dL (6.3-8.2) 08/22/21 05:33 Albumin 3.8 g/dL (3.9-5) L 08/22/21 05:33 Albumin/Globulin Ratio 1.4 % 08/22/21 05:33 Urine Color Yellow (Yellow) 08/21/21 Unknown Urine Turbidity Clear (Clear) 08/21/21 Unknown Urine pH 6.0 (5.0-7.0) 08/21/21 Unknown Ur Specific [place] 1.030 (1.003-1.030) 08/21/21 Unknown Urine Protein 30 mg/dl mg/dL (Negative) 08/21/21 Unknown Urine Glucose (UA) Neg mg/dL (Negative) 08/21/21 Unknown Urine Ketones 20 mg/dL (Negative) 08/21/21 Unknown Urine Blood Neg (Negative) 08/21/21 Unknown Urine Nitrite Neg (Negative) 08/21/21 Unknown Urine Bilirubin Neg (Negative) 08/21/21 Unknown Urine Urobilinogen 4.0 mg/dL (<2.0) 08/21/21 Unknown Ur Leukocyte Esterase Neg (Negative) 08/21/21 Unknown Urine WBC (Auto) 4.0 /HPF (0.0-6.0) 08/21/21 Unknown Urine RBC (Auto) 11.0 /HPF (0.0-6.0) 08/21/21 Unknown U Epithel Cells (Auto) 8.0 /HPF (0-13.0) 08/21/21 Unknown Urine Mucus Few /HPF 08/21/21 Unknown Microbiology: Microbiology 08/21/21 09:31 Peripheral/Venous Blood Culture - Preliminary Culture in Progress 08/21/21 09:31 Peripheral/Venous Blood Culture - Preliminary Culture in Progress Dean/IV: Voiding Method Urinal Active Medications - Current Medications Current Medications: Generic Name Dose Route Start Last Admin Trade Name Freq PRN Reason Stop Dose Admin Acetaminophen 650 mg 08/21/21 20:33 Acetaminophen 325 Mg Tab PO Q4H PRN Pain MILD(1-3)/Fever >100.5/CARABALLO Hydrocodone Bitart/Acetaminophen 2 each 08/21/21 20:33 Hydrocodone/Acetaminophen 5-325 Mg Tab PO Q6H PRN Pain, Moderate (4-6) Amlodipine Besylate 5 mg 08/21/21 21:00 08/22/21 09:45 Amlodipine 5 Mg Tab PO 5 mg DAILY TOI Administration Heparin Sodium (Porcine) 5,000 unit 08/21/21 22:00 08/22/21 09:47 Heparin 5,000 Unit/1 Ml Vial SUB-Q Not Given Q12HR TOI Hydromorphone HCl 1 mg 08/21/21 20:33 08/22/21 06:37 Hydromorphone 1 Mg/1 Ml Inj IV 1 mg Q3H PRN Administration Pain , Severe (7-10) Potassium Chloride/Dextrose/Sod Cl 20 meq in 1,000 mls @ 100 mls/hr 08/21/21 21:00 08/21/21 23:09 D5w/0.45% Nacl/Kcl 20 Meq IV 100 mls/hr DIRECT TOI Administration Methylprednisolone Sodium Succinate 40 mg 08/21/21 22:00 08/22/21 06:30 Methylprednisolone Sod Succinate 40 Mg/1 Ml Inj IV 40 mg Q8HR TOI Administration Metoclopramide HCl 10 mg 08/21/21 20:33 Metoclopramide 10 Mg/2 Ml Inj IV Q6H PRN Nausea And Vomiting Ondansetron HCl 4 mg 08/21/21 20:33 Ondansetron 4 Mg/2 Ml Inj IV Q3H PRN Nausea And Vomiting Pantoprazole Sodium 20 mg 08/21/21 21:00 08/22/21 09:46 Pantoprazole 20 Mg Tab PO 20 mg QDAY TOI Administration Sodium Chloride 10 ml 08/21/21 22:00 08/22/21 09:46 Sodium Chloride 0.9% 10 Ml Flush Syringe IV 10 ml BID TOI Administration Sodium Chloride 10 ml 08/21/21 20:33 Sodium Chloride 0.9% 10 Ml Flush Syringe IV PRN PRN LINE FLUSH
[2021-08-22] MEDS ORDERED: VANCOMYCIN 1000 MG INJ ONE (15:42)
[2021-08-22] MEDS ORDERED: BUPIVACAINE/PF (0.25%) 2.5 MG/ML 30 ML VIAL INFILTRATI ONE ×2 (15:42→18:22)
[2021-08-22] MEDS ORDERED: THROMBIN (RECOMBINANT) 5,000 UNIT VIAL TP ONE ×2 (15:43→18:24)
[2021-08-22] MEDS ORDERED: LIDOCAINE 1%/EPINEPHRINE 1:100,000 VIAL (20 ML) INFILTRATI ONE ×2 (15:43→18:11)
[2021-08-22] MEDS ORDERED: propofoL 200 MG/20 ML VIAL IV ONE ×2 (15:59→18:14)
[2021-08-22] MEDS ORDERED: KETAMINE/STERILE WATER 50 MG/ML SYRINGE ONE (15:59)
[2021-08-22] MEDS ORDERED: ePHEDrine SULFATE 50 MG/1 ML INJ ONE (16:36)
[2021-08-22] MEDS ORDERED: ceFAZolin 1 GM VIAL ONE (16:51)
[2021-08-22] MEDS ORDERED: HYDROmorphone 1 MG/1 ML INJ ONE (16:57)
[2021-08-22] MEDS ORDERED: ROCURONIUM 50 MG/5 ML INJ IV ONE (16:58)
[2021-08-22] MEDS ORDERED: HYDROmorphone 1 MG/1 ML INJ IV PRN ×2 (17:36)
[2021-08-22] MEDS ORDERED: ONDANSETRON 4 MG/2 ML INJ IV PRN (17:36)
--- NOTE | 2021-08-22 17:37 | Anesthesia Day of Surgery ---
Anesthesia Day of Surgery - Day of Surgery Patient Examined: Yes Patient H&P Reviewed: Yes Patient is NPO: Yes
--- NOTE | 2021-08-22 17:40 | Anesthesia Consultation ---
Anesthesia Consult and Med Hx Date of service: 08/22/21 - Airway Anesthetic Teeth Evaluation: Dentures, Edentulous ROM Head & Neck: Adequate Mental/Hyoid Distance: Adequate Mallampati Class: Class II Intubation Access Assessment: Good - Pre-Operative Health Status ASA Pre-Surgery Classification: ASA3 Proposed Anesthetic Plan: General - Pulmonary Hx Smoking: Yes - Cardiovascular System Hx Hypertension: Yes (Lisinopril) - Central Nervous System Hx Back Pain: Yes Hx Psychiatric Problems: No - Gastrointestinal Hx Gastroesophageal Reflux Disease: Yes - Endocrine Hx Non-Insulin Dependent Diabetes: Yes - Other Systems Hx Alcohol Use: Yes Hx Cancer: Yes (Prostate-mets to spine) Hx Obesity: No
[2021-08-22] MEDS ORDERED: LIDOCAINE PF 100 MG/5 ML (CARDIAC SYRINGE) IV ONE (17:43)
[2021-08-22] MEDS ORDERED: dexAMETHasone 20 MG/5 ML VIAL ONE (17:43)
[2021-08-22] MEDS ORDERED: BACITRACIN ZINC OINT 28.4 GM TP ONE ×2 (18:15→19:26)
[2021-08-22] MEDS ORDERED: SODIUM CHLORIDE 0.9% 500 ML 500 ML ONE (18:18)
[2021-08-22] MEDS ORDERED: VANCOMYCIN 1,000 MG/20 ML IV ONE (18:23)
--- NOTE | 2021-08-22 18:38 | XRay Report ---
INTRAOPERATIVE FLUOROSCOPY: LUMBAR SPINE INDICATION: T9-T10 DORSAL SPINAL MASS. TECHNIQUE: Intraoperative spot images were obtained during the procedure. FINDINGS: A single submitted image demonstrates surgical access at the level of T9. Please see the operative re port for further details. Fluoroscopy Time: 5 seconds. Fluoroscopy Images: 1. Signer Name: Medhat Nolan MD Signed: 08/22/2021 6:34 PM Workstation Name: [id number]
--- NOTE | 2021-08-22 18:41 | Post Operative Note ---
Pre-op diagnosis: T9-10 dorsal epidural mass Post-op diagnosis: same Findings: Right T9-10 dorsal osseous mass causing severe cord compression Anesthesia: GETA Surgeon: JAIRO LÓPEZ II Estimated blood loss: other (150 ml) Pathology: none Condition: stable Disposition: ICU
[2021-08-22] MEDS ORDERED: oxyCODONE /ACETAMINOPHEN 5-325MG TAB PO PRN (18:47)
[2021-08-22] MEDS ORDERED: LACTATED RINGERS 1,000 ML ONE (18:51)
[2021-08-22] MEDS ORDERED: SODIUM CHLORIDE 0.9% 1000 ML 1,000 ML IV SCH (19:00)
--- NOTE | 2021-08-22 20:04 | Post Anesthesia Evaluation ---
- Post Anesthesia Evaluation Patient Participated: Yes Airway Patent: Yes Stable Respiratory Function: Yes Nausea/Vomiting: No Temp > 96.8F: Yes Pain Manageable: Yes Adequeate Hydration: Yes Anesthesia Complications: No Block Receding Appropriately: Not Applicable Patient on Ventilator: No
[2021-08-22] MEDS ORDERED: NORepinephrine/NS 8 MG-250 ML 8 MG/250 ML INFUS..BTL IV SCH (21:09)
[2021-08-22] MEDS ORDERED: ceFAZolin/Water 2 GM/20 ML 2 GM/20 ML SYRINGE IV SCH (21:09)
[2021-08-22] MEDS ORDERED: tiZANidine TAB 4 MG TAB PO PRN (21:09)
[2021-08-22] MEDS: D5W/0.45% NACL/KCL 20 MEQ 20 MEQ/1,000 ML BAG IV SCH (21:51)
[2021-08-22] MEDS ORDERED: DOCUSATE SODIUM 100 MG CAP PO SCH (22:00)
[2021-08-23] MEDS: HYDROcodone/ACETAMINOPHEN 5-325 MG TAB PO PRN ×2 (03:20→15:00)
[2021-08-23] MEDS: methylPREDNISolone Sod Succinate 40 MG/1 ML INJ IV SCH ×3 (06:18→21:23)
[2021-08-23] MEDS: HYDROmorphone 1 MG/1 ML INJ IV PRN ×3 (07:47→20:35)
[2021-08-23] MEDS ORDERED: D5W/0.45% NACL 1,000 ML IV SCH (08:00)
[2021-08-23 09:59] LABS: Hematocrit 34.8 % (35.5-45.6); Hemoglobin 11.1 gm/dl (11.8-15.2); Mean Corpuscular HGB Conc 32 % (32-34); Mean Corpuscular Volume 82 fl (84-94); Platelet Count 251 K/mm3 (140-440); Red Blood Count 4.25 M/mm3 (3.65-5.03)
[2021-08-23 10:13] LABS: Blood Urea Nitrogen 12 mg/dL (9-20); Calcium 7.9 mg/dL (8.4-10.2); Hemolysis Index 2
[2021-08-23 10:15] LABS: BUN/Creatinine Ratio 30
[2021-08-23] MEDS: amLODIPine 5 MG TAB PO SCH (10:15)
[2021-08-23] MEDS: PANTOPRAZOLE 20 MG TAB PO SCH (10:15)
--- NOTE | 2021-08-23 10:15 | Consultation ---
History of Present Illness - Reason for Consult Consult date: 08/23/21 BP monitoring Requesting physician: JAIRO LÓPEZ II - History of Present Illness 66 y/o male with prostate CA with bony mets is now s/p neurosurgery for large bony met to spin removal. Patient tolerated procedure well, extubated and transferred to ICU. Neurosurgery requested ICU monitoring for invasive BP monitoring with art line to keep MAPs 85 and greater and possible need for pressors. Patient is awake and alert this am. MAPs have all been greater than 85. Remainder is negative. Past History Past Medical History: diabetes, GERD, hypertension, other (Prostate cancer) Medications and Allergies Allergies Allergy/AdvReac Type Severity Reaction Status Date / Time No Known Allergies Allergy Verified 08/22/21 03:39 Home Medications Medication Instructions Recorded Confirmed Last Taken Type Omeprazole [PriLOSEC] 20 mg PO QDAY #30 capsule. 10/06/14 08/22/21 1 Day Ago Rx ~08/05/21 Abiraterone Acetate 250 mg PO DAILY 08/22/21 08/22/21 08/20/21 09:00 History DULoxetine 50 mg PO DAILY 08/22/21 08/22/21 08/20/21 09:00 History Gabapentin [Neurontin] 800 mg PO TID 08/22/21 08/22/21 08/20/21 09:00 History Lisinopril 20 mg PO DAILY 08/22/21 08/22/21 08/20/21 09:00 History Pyridoxine HCl (Vitamin B6) 100 mg PO DAILY 08/22/21 08/22/21 Unknown History [Vitamin B6] amLODIPine 10 mg PO DAILY 08/22/21 08/22/21 08/20/21 09:00 History oxyCODONE 10 mg PO PRN 08/22/21 08/22/21 08/20/21 09:00 History Active Meds: Active Medications Acetaminophen (Acetaminophen 325 Mg Tab) 650 mg PO Q4H PRN PRN Reason: Pain MILD(1-3)/Fever >100.5/[place]AB[place]O Hydrocodone Bitart/Acetaminophen (Hydrocodone/Acetaminophen 5-325 Mg Tab) 2 each PO Q6H PRN PRN Reason: Pain, Moderate (4-6) Last Admin: 08/23/21 03:20 Dose: 2 each Documented by: Amlodipine Besylate (Amlodipine 5 Mg Tab) 5 mg PO DAILY [facility] Last Admin: 08/22/21 09:45 Dose: 5 mg Documented by: Hydromorphone HCl (Hydromorphone 1 Mg/1 Ml Inj) 1 mg IV Q3H PRN PRN Reason: Pain , Severe (7-10) Last Admin: 08/23/21 07:47 Dose: 1 mg Documented by: Hydromorphone HCl (Hydromorphone 1 Mg/1 Ml Inj) 0.25 mg IV Q10MIN PRN PRN Reason: Pain, Moderate (4-6) Stop: 08/23/21 17:35 Hydromorphone HCl (Hydromorphone 1 Mg/1 Ml Inj) 0.5 mg IV Q10MIN PRN PRN Reason: Pain , Severe (7-10) Stop: 08/23/21 17:35 NORepinephrine/NS 8 MG-250 ML (Norepinephrine/Ns 8 Mg-250 Ml (Double Conc)) 8 mg in 250 mls @ 3.75 mls/hr IV TITRATE [facility]; Protocol Methylprednisolone Sodium Succinate (Methylprednisolone Sod Succinate 40 Mg/1 Ml Inj) 40 mg IV Q8HR [facility] Last Admin: 08/23/21 06:18 Dose: 40 mg Documented by: Metoclopramide HCl (Metoclopramide 10 Mg/2 Ml Inj) 10 mg IV Q6H PRN PRN Reason: Nausea And Vomiting Ondansetron HCl (Ondansetron 4 Mg/2 Ml Inj) 4 mg IV Q3H PRN PRN Reason: Nausea And Vomiting Pantoprazole Sodium (Pantoprazole 20 Mg Tab) 20 mg PO QDAY [facility] Last Admin: 08/22/21 09:46 Dose: 20 mg Documented by: Sodium Chloride (Sodium Chloride 0.9% 10 Ml Flush Syringe) 10 ml IV BID [facility] Last Admin: 08/22/21 21:51 Dose: 10 ml Documented by: Sodium Chloride (Sodium Chloride 0.9% 10 Ml Flush Syringe) 10 ml IV PRN PRN PRN Reason: LINE FLUSH Tizanidine HCl (Tizanidine Tab 4 Mg Tab) 4 mg PO Q8H PRN PRN Reason: Muscle Spasm Exam - Constitutional Vitals: Temp Pulse Resp BP Pulse Ox 98.2 F 55 L 12 137/75 100 08/23/21 04:00 08/23/21 09:01 08/23/21 09:01 08/23/21 09:01 08/23/21 09:01 General appearance: Present: no acute distress, well-nourished - EENT Eyes: Present: PERRL, EOM intact ENT: hearing intact, clear oral mucosa - Neck Neck: Present: supple, normal ROM - Respiratory Respiratory effort: normal Respiratory: bilateral: CTA - Cardiovascular Rhythm: regular Heart Sounds: Present: S1 & S2 Results - Labs CBC & Chem 7: 08/23/21 09:26 08/22/21 05:33 Labs: Abnormal lab results 08/22/21 08/22/21 08/23/21 Range/Units 11:39 19:33 04:00 Hgb (11.8-15.2) gm/dl Hct (35.5-45.6) % MCV (84-94) fl MCH (28-32) pg POC Glucose 155 H 193 H 179 H (70-105) mg/dL 08/23/21 Range/Units 09:26 Hgb 11.1 L (11.8-15.2) gm/dl Hct 34.8 L (35.5-45.6) % MCV 82 L (84-94) fl MCH 26 L (28-32) pg POC Glucose (70-105) mg/dL Assessment and Plan 66 y/o male with prostate CA and spinal mets with cord compression s/p debulking and removal. 1. Stable BP's as per request of surgery, met MAP criteria 2. Follow up neurosurgery recs 3. Appears stable for floor but will await neurosurgery eval prior to transfer.
[2021-08-23] MEDS ORDERED: SODIUM POLYSTYRENE 15 GM/60 ML ORAL LIQD PO ONE (11:00)
[2021-08-23] MEDS ORDERED: DEXTROSE 50% IN WATER (25GM) 50 ML SYRINGE IV PRN (11:34)
--- NOTE | 2021-08-23 11:48 | Progress Note ---
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, s/p T9-10 laminectonmy for resection of dorsal epidural met, peripheral neuropathy -L spine MRI shows severe central canal stenosis at L4-L5 -T spine MRI shows diffuse osseous heterogeneity worrisome for metastatic disease, pulmonary involvement T10 with extra osseous epidural extension and canal stenosis -Neurosurgery consulted, appreciate recommendations -08/22 s/p T9-10 laminectonmy for resection of dorsal epidural met -Solumedrol 40 mg q 8 per neurosurgery -Reorientation as needed -Maintain sleep-wake cycle -back brace at bedside -Gabapentin -PRN analgesia -Tizanidine prn Cardio: h/o HTN -Resume home amlodipine -BP monitoring per protocol -[place] placed for surgery -BP monitoring through katya for now -remove when cleared to transfer -CC cardiac diet Resp: NAD -Supplemental oxygenation as needed -Pulmonary hygiene -CCM consulted, appreciate recommendations GI: h/o GERD -CT abdomen/pelvis with contrast shows constipation, hepatomegaly with hepatic steatosis -PPI -BR: [place] -24 hour +265 ml : Hyperkalemia, h/o prostate CA -Kionex x 1 -Trend BMP -Dean placed interop -may remove today Endo: h/o DM -SSI -Accucheck ACHS -Avoid hypoglycemia ID: [id number] -Monitor fever and WBC curve -f/u BC -States he has been vaccianted for covid Heme: NAD -Trend CBC -Tranfuse for hbg <7 -No chemical anticougulation until cleared by neurosurgery -SCDs to BLE while in bed The high probability of a clinically significant, sudden or life threatening deterioration of the [neuro] system(s) required my full and direct attention, intervention and personal management. The aggregate critical care time was [60] minutes. This time is in addition to time spent performing reported procedures but includes the following: [x] Data Review and interpretation [x] Patient assessment and monitoring of vital signs [x] Documentation [x] Medication orders and management Disposition Plan: possible transfer to floor Total Time Spent with Patient (Minutes): 60 History Interval history: This is a 66 year old male with HTN, DM, GERD, prostate cancer with mets on chemotherapy who presented to the ED on 08/21 for complains of mid and lower back pain with radiation into the RLE associated with RLE weakness for 1 month with worsening over the past 2 days and new onset inability to walk. He was admitted to the hospitalist service with spinal cord compression from dorsolateral mass at T10 causing severe canal stenosis with cord displacement. Neurosurgery was consulted and he was admitted to the surgical floor. 08/22: Patient seen and examined this morning still with persistent bilateral lower extremity weakness unable to ambulate. Considering MRI findings and discussion with neurosurgeon patient will be proceeding for laminectomy either here based on the OR staffing or transfer to [facility] which I have spoken to them and they have accepted the patient for hospitalist admission with neurosurgery consultation to Dr. Ambriz. For now we will continue steroids as recommended by Dr. Ambriz. Physical therapy evaluation post surgery 08/23: s/p T9-10 laminectomy for resection of dorsal epidural met. Admitted to the ICU post op with katya for blood pressure monitoring. No vasopressor use overnight. Awaiting neurosurgery clearance for transfer to the floor. Hospitalist Physical - Constitutional Vitals: Temp Pulse Resp BP Pulse Ox 99.0 F 63 19 137/75 98 08/23/21 08:00 08/23/21 10:31 08/23/21 10:31 08/23/21 10:31 08/23/21 10:31 General appearance: Present: no acute distress, well-nourished - EENT Eyes: Present: PERRL, EOM intact ENT: hearing intact, clear oral mucosa, dentition normal - Neck Neck: Present: normal ROM - Respiratory Respiratory effort: normal Respiratory: bilateral: CTA - Cardiovascular Rhythm: regular Heart Sounds: Present: S1 & S2. Absent: systolic murmur, diastolic murmur - Extremities Extremities: no ischemia, pulses intact, pulses symmetrical, No edema, normal temperature, normal color Peripheral Pulses: within normal limits - Abdominal General gastrointestinal: soft, non-tender, non-distended, normal bowel sounds - Integumentary Integumentary: Present: warm, dry - Psychiatric Psychiatric: cooperative - Neurologic Neurologic: CNII-XII intact, no focal deficits, moves all extremities - Allied Health Allied health notes reviewed: nursing, RT, social work Results - Labs CBC & Chem 7: 08/23/21 09:26 08/23/21 09:26 Labs: Laboratory Last Values WBC 7.5 K/mm3 (4.5-11.0) 08/23/21 09:26 RBC 4.25 M/mm3 (3.65-5.03) 08/23/21 09:26 Hgb 11.1 gm/dl (11.8-15.2) L 08/23/21 09:26 Hct 34.8 % (35.5-45.6) L 08/23/21 09:26 MCV 82 fl (84-94) L 08/23/21 09:26 MCH 26 pg (28-32) L 08/23/21 09:26 MCHC 32 % (32-34) 08/23/21 09:26 RDW 14.0 % (13.2-15.2) 08/23/21 09:26 Plt Count 251 K/mm3 (140-440) 08/23/21 09:26 Lymph % (Auto) 18.5 % (13.4-35.0) 08/22/21 05:33 [place] % (Auto) 2.5 % (0.0-7.3) 08/22/21 05:33 Eos % (Auto) 0.0 % (0.0-4.3) 08/22/21 05:33 Baso % (Auto) 0.1 % (0.0-1.8) 08/22/21 05:33 Lymph # (Auto) 0.7 K/mm3 (1.2-5.4) L 08/22/21 05:33 [place] # (Auto) 0.1 K/mm3 (0.0-0.8) 08/22/21 05:33 Eos # (Auto) 0.0 K/mm3 (0.0-0.4) 08/22/21 05:33 Baso # (Auto) 0.0 K/mm3 (0.0-0.1) 08/22/21 05:33 Seg Neutrophils % 78.9 % (40.0-70.0) H 08/22/21 05:33 Seg Neutrophils # 3.0 K/mm3 (1.8-7.7) 08/22/21 05:33 PT 13.2 Sec. (12.2-14.9) 08/21/21 08:48 INR 0.90 (0.87-1.13) 08/21/21 08:48 Sodium 140 mmol/L (137-145) 08/23/21 09:26 Potassium 5.3 mmol/L (3.6-5.0) H 08/23/21 09:26 Chloride 102.7 mmol/L (98-107) 08/23/21 09:26 Carbon Dioxide 25 mmol/L (22-30) 08/23/21 09:26 Anion Gap 18 mmol/L 08/23/21 09:26 BUN 12 mg/dL (9-20) 08/23/21 09:26 Creatinine 0.4 mg/dL (0.8-1.3) L 08/23/21 09:26 Estimated GFR > 60 ml/min 08/23/21 09:26 BUN/Creatinine Ratio 30 % 08/23/21 09:26 Glucose 141 mg/dL (75-100) H 08/23/21 09:26 POC Glucose 179 mg/dL (70-105) H 08/23/21 04:00 Lactic Acid 1.30 mmol/L (0.7-2.0) 08/21/21 09:31 Calcium 7.9 mg/dL (8.4-10.2) L 08/23/21 09:26 Magnesium 2.40 mg/dL (1.7-2.3) H 08/22/21 05:33 Total Bilirubin 0.60 mg/dL (0.1-1.2) 08/22/21 05:33 AST 38 units/L (5-40) 08/22/21 05:33 ALT 19 units/L (7-56) 08/22/21 05:33 Alkaline Phosphatase 638 units/L (35-129) H 08/22/21 05:33 Total Creatine Kinase 92 units/L (55-170) 08/21/21 08:48 Total Protein 6.6 g/dL (6.3-8.2) 08/22/21 05:33 Albumin 3.8 g/dL (3.9-5) L 08/22/21 05:33 Albumin/Globulin Ratio 1.4 % 08/22/21 05:33 Urine Color Yellow (Yellow) 08/21/21 Unknown Urine Turbidity Clear (Clear) 08/21/21 Unknown Urine pH 6.0 (5.0-7.0) 08/21/21 Unknown Ur Specific [place] 1.030 (1.003-1.030) 08/21/21 Unknown Urine Protein 30 mg/dl mg/dL (Negative) 08/21/21 Unknown Urine Glucose (UA) Neg mg/dL (Negative) 08/21/21 Unknown Urine Ketones 20 mg/dL (Negative) 08/21/21 Unknown Urine Blood Neg (Negative) 08/21/21 Unknown Urine Nitrite Neg (Negative) 08/21/21 Unknown Urine Bilirubin Neg (Negative) 08/21/21 Unknown Urine Urobilinogen 4.0 mg/dL (<2.0) 08/21/21 Unknown Ur Leukocyte Esterase Neg (Negative) 08/21/21 Unknown Urine WBC (Auto) 4.0 /HPF (0.0-6.0) 08/21/21 Unknown Urine RBC (Auto) 11.0 /HPF (0.0-6.0) 08/21/21 Unknown U Epithel Cells (Auto) 8.0 /HPF (0-13.0) 08/21/21 Unknown Urine Mucus Few /HPF 08/21/21 Unknown Microbiology: Microbiology 08/21/21 09:31 Peripheral/Venous Blood Culture - Preliminary NO GROWTH AFTER 24 HOURS 08/21/21 09:31 Peripheral/Venous Blood Culture - Preliminary NO GROWTH AFTER 24 HOURS Dean/IV: Voiding Method Indwelling Catheter Active Medications - Current Medications Current Medications: Generic Name Dose Route Start Last Admin Trade Name Freq PRN Reason Stop Dose Admin Acetaminophen 650 mg 08/21/21 20:33 Acetaminophen 325 Mg Tab PO Q4H PRN Pain MILD(1-3)/Fever >100.5/CARABALLO Hydrocodone Bitart/Acetaminophen 2 each 08/21/21 20:33 08/23/21 03:20 Hydrocodone/Acetaminophen 5-325 Mg Tab PO 2 each Q6H PRN Administration Pain, Moderate (4-6) Amlodipine Besylate 5 mg 08/21/21 21:00 08/23/21 10:15 Amlodipine 5 Mg Tab PO 5 mg DAILY TOI Administration Dextrose 50 ml 08/23/21 11:34 Dextrose 50% In Water (25gm) 50 Ml Syringe IV Q30MIN PRN Hypoglycemia Protocol Hydromorphone HCl 1 mg 08/21/21 20:33 08/23/21 07:47 Hydromorphone 1 Mg/1 Ml Inj IV 1 mg Q3H PRN Administration Pain , Severe (7-10) Hydromorphone HCl 0.25 mg 08/22/21 17:36 Hydromorphone 1 Mg/1 Ml Inj IV 08/23/21 17:35 Q10MIN PRN Pain, Moderate (4-6) Hydromorphone HCl 0.5 mg 08/22/21 17:36 Hydromorphone 1 Mg/1 Ml Inj IV 08/23/21 17:35 Q10MIN PRN Pain , Severe (7-10) NORepinephrine/NS 8 MG-250 ML 8 mg in 250 mls @ 3.75 mls/hr 08/22/21 21:09 Norepinephrine/Ns 8 Mg-250 Ml (Double Conc) IV TITRATE [facility] Protocol 2 MCG/MIN Insulin Human Lispro 0 unit 08/23/21 16:30 Insulin Lispro 100 Unit/Ml SUB-Q ACHS [facility] Protocol Methylprednisolone Sodium Succinate 40 mg 08/21/21 22:00 08/23/21 06:18 Methylprednisolone Sod Succinate 40 Mg/1 Ml Inj IV 40 mg Q8HR TOI Administration Metoclopramide HCl 10 mg 08/21/21 20:33 Metoclopramide 10 Mg/2 Ml Inj IV Q6H PRN Nausea And Vomiting Ondansetron HCl 4 mg 08/21/21 20:33 Ondansetron 4 Mg/2 Ml Inj IV Q3H PRN Nausea And Vomiting Pantoprazole Sodium 20 mg 08/21/21 21:00 08/23/21 10:15 Pantoprazole 20 Mg Tab PO 20 mg QDAY TOI Administration Senna 17.2 mg 08/23/21 22:00 Sennosides 8.6 Mg Tab PO QHS TOI Sodium Chloride 10 ml 08/21/21 22:00 08/23/21 10:15 Sodium Chloride 0.9% 10 Ml Flush Syringe IV 10 ml BID TOI Administration Sodium Chloride 10 ml 08/21/21 20:33 Sodium Chloride 0.9% 10 Ml Flush Syringe IV PRN PRN LINE FLUSH Tizanidine HCl 4 mg 08/22/21 21:09 Tizanidine Tab 4 Mg Tab PO Q8H PRN Muscle Spasm Nutrition/Malnutrition Assess - Dietary Evaluation Nutrition/Malnutrition Findings: Nutrition Notes Start: 08/22/21 12:32 Freq: Status: Active Protocol: Document 08/22/21 12:32 SHY (Rec: 08/22/21 13:02 SHY [id number]) Nutrition Notes 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 Labs/Tests 08/22: Crea 0.4, Glu 149, Mg 2 .4, Alk Phos 638, Alb 3.8. Pertinent Medications 08/22: D5w/0.45% NaCl/KCl 20 mEq; 1000 ml @ 100 ml/hr, others nutritionally unremarkable. Height 5 ft 9 in Weight 68.3 kg [place] Body Weight (kg) 72.72 BMI 22.2 Weight Status Appropriate Subjective/Other Information RD consult for skin risk assessment; < or = 18. There are no concerns for skin risk at the time. When pertinent, advance to Consistent Carbohydrates Diet. Percent of energy/protein needs met: Pt currently on NPO. Burn Absent Trauma Absent GI Symptoms None Food Allergy No Skin Integrity/Comment Clear, warm, dry. Current % PO Other Minimum of two criteria No #1 Nutrition Diagnosis Increased nutrient needs ( specify in comment below) Etiology Progression of ongoing and chronic metabolic conditions As Evidenced by Signs and Symptoms MD diagnosis and abnormal chemistry lab values. Is patient on ventilator? No Is Patient Ambulatory and/or Out of Bed No REE-([facility]-confined to bed) 1755.468 Kcal/Kg value to use for calculation 35 Approximate Energy Requirements Using 2391 kcal/Kg Calculation Used for Recommendations Kcal/kg Additional Notes Protein: 1.2-1.5 g/Kg; 86-102 g/day (from ABW+critical care) . Fluids: 1 ml/Kcal, or as per MD. Nutrition Intervention Change Diet Order: Continue NPO as per MD. When pertinent, advance to Consistent Carbohydrates Diet. Goal #1 Maintain body weight within +/ -3% of current BWt during LOS. Goal #2 Reach and maintain acceptable chemistry lab values during LOS. Follow-Up By: 08/25/21 Additional Comments Continue monitoring Hydration, and BM. When pertinent, food tolerance and %PO intake of meals.
--- NOTE | 2021-08-23 16:18 | Progress Note ---
Assessment and Plan Donald De POD1 s/p T9-10 laminectomy for resection of epidural mass -cont current care -transfer to floor -PT/OT, brace when OOB -may start pharmacologic dvt prophylaxis tomorrow -will follow Subjective Date of service: 08/23/21 Interval history: NAEON; pt doing well, he reports improvement in his RLE strength Objective - Exam Narrative Exam: seen and examined no acute distress A&Ox3 CNII-XII intact MAEW sensation intact incision c/d/i, dressing intact - Vital Sign Vital Signs - 12hr 08/23/21 08/23/21 08/23/21 04:31 05:01 05:31 Temperature Pulse Rate 65 62 57 L Respiratory 18 15 15 Rate Blood Pressure O2 Sat by Pulse 100 100 100 Oximetry 08/23/21 08/23/21 08/23/21 06:01 06:31 07:01 Temperature Pulse Rate 59 L 61 60 Respiratory 16 17 17 Rate Blood Pressure 137/75 137/75 O2 Sat by Pulse 100 100 100 Oximetry 08/23/21 08/23/21 08/23/21 07:31 08:00 08:01 Temperature 99.0 F Pulse Rate 67 59 L Respiratory 20 14 Rate Blood Pressure 137/75 137/75 O2 Sat by Pulse 100 99 100 Oximetry 08/23/21 08/23/21 08/23/21 08:31 09:01 09:31 Temperature Pulse Rate 57 L 55 L 57 L Respiratory 14 12 17 Rate Blood Pressure 137/75 137/75 137/75 O2 Sat by Pulse 100 100 100 Oximetry 08/23/21 08/23/21 08/23/21 10:01 10:15 10:31 Temperature Pulse Rate 58 L 69 63 Respiratory 15 19 Rate Blood Pressure 137/75 137/66 137/75 O2 Sat by Pulse 97 98 Oximetry 08/23/21 08/23/21 08/23/21 11:01 11:31 12:00 Temperature 98.8 F Pulse Rate 61 61 Respiratory 17 16 Rate Blood Pressure 137/75 137/75 O2 Sat by Pulse 99 99 99 Oximetry 08/23/21 08/23/21 08/23/21 12:01 12:31 13:00 Temperature Pulse Rate 65 61 71 Respiratory 18 17 16 Rate Blood Pressure 137/75 127/80 126/82 O2 Sat by Pulse 99 99 99 Oximetry 1108/23/21 08/23/21 13:31 14:01 14:31 Temperature Pulse Rate 70 74 63 Respiratory 19 15 20 Rate Blood Pressure 126/82 118/58 118/58 O2 Sat by Pulse 99 100 99 Oximetry 08/23/21 15:01 Temperature Pulse Rate 70 Respiratory 15 Rate Blood Pressure 109/65 O2 Sat by Pulse 99 Oximetry - Laboratory Findings CBC and BMP: 08/23/21 09:26 08/23/21 09:26 Abnormal Lab Findings: Abnormal Labs 08/21/21 08/21/21 08/21/21 08:31 08:32 08:48 WBC Hgb Hct MCV 81 L MCH 27 L Lymph # (Auto) 1.0 L Seg Neutrophils % 76.5 H Sodium 136 L Potassium 2.6 L* Chloride 91.8 L BUN 7 L Creatinine 0.3 L Glucose 135 H POC Glucose Calcium Magnesium 2.50 H AST 42 H Alkaline Phosphatase 749 H Albumin 08/21/21 08/22/21 08/22/21 21:28 05:33 05:33 WBC 3.8 L Hgb Hct MCV 82 L MCH 27 L Lymph # (Auto) 0.7 L Seg Neutrophils % 78.9 H Sodium Potassium Chloride BUN Creatinine 0.4 L Glucose 149 H POC Glucose 130 H Calcium Magnesium AST Alkaline Phosphatase 638 H Albumin 3.8 L 08/22/21 08/22/21 08/22/21 05:33 08:02 11:39 WBC Hgb Hct MCV MCH Lymph # (Auto) Seg Neutrophils % Sodium Potassium Chloride BUN Creatinine Glucose POC Glucose 171 H 155 H Calcium Magnesium 2.40 H AST Alkaline Phosphatase Albumin 08/22/21 08/23/21 08/23/21 19:33 04:00 09:26 WBC Hgb 11.1 L Hct 34.8 L MCV 82 L MCH 26 L Lymph # (Auto) Seg Neutrophils % Sodium Potassium Chloride BUN Creatinine Glucose POC Glucose 193 H 179 H Calcium Magnesium AST Alkaline Phosphatase Albumin 08/23/21 08/23/21 09:26 11:50 WBC Hgb Hct MCV MCH Lymph # (Auto) Seg Neutrophils % Sodium Potassium 5.3 H Chloride BUN Creatinine 0.4 L Glucose 141 H POC Glucose 127 H Calcium 7.9 L Magnesium AST Alkaline Phosphatase Albumin
[2021-08-23] MEDS: INSULIN LISPRO 100 UNIT/ML SUB-Q SCH ×2 (17:36→23:24)
[2021-08-23] MEDS: SENNOSIDES 8.6 MG TAB PO SCH (21:23)
[2021-08-24] MEDS: HYDROcodone/ACETAMINOPHEN 5-325 MG TAB PO PRN ×2 (01:50→22:04)
[2021-08-24] MEDS: methylPREDNISolone Sod Succinate 40 MG/1 ML INJ IV SCH ×2 (05:43→22:03)
[2021-08-24] MEDS: HYDROmorphone 1 MG/1 ML INJ IV PRN ×2 (05:43→16:27)
[2021-08-24 06:56] LABS: Blood Urea Nitrogen 14 mg/dL (9-20); Calcium 7.9 mg/dL (8.4-10.2); Hemolysis Index 6
[2021-08-24 06:57] LABS: BUN/Creatinine Ratio 47
[2021-08-24] MEDS: INSULIN LISPRO 100 UNIT/ML SUB-Q SCH ×4 (08:20→23:03)
[2021-08-24] MEDS: amLODIPine 5 MG TAB PO SCH (09:15)
[2021-08-24] MEDS: PANTOPRAZOLE 20 MG TAB PO SCH (09:16)
--- NOTE | 2021-08-24 09:52 | Progress Note ---
Assessment and Plan 66 y/o male with prostate CA and spinal mets with cord compression s/p debulking and removal. 08/24/21: Will sign off, call if questions. 1. Stable BP's as per request of surgery, met MAP criteria 2. Follow up neurosurgery recs 3. Appears stable for floor but will await neurosurgery eval prior to transfer. Subjective Date of service: 08/24/21 Interval history: Successful transfer out of unit. Stable BP's Objective - Constitutional Vitals: Vital Signs - 12hr 08/23/21 08/24/21 08/24/21 22:55 00:00 05:34 Temperature 98.6 F 98.9 F Pulse Rate 58 L 60 Respiratory 16 16 Rate Blood Pressure 136/76 149/87 Blood Pressure [Right] O2 Sat by Pulse 99 99 99 Oximetry 08/24/21 08/24/21 08/24/21 08:45 09:15 09:17 Temperature 98.1 F Pulse Rate 56 L 56 L Respiratory 20 Rate Blood Pressure 144/85 Blood Pressure 144/85 [Right] O2 Sat by Pulse 99 100 Oximetry - Labs CBC & Chem 7: 08/23/21 09:26 08/24/21 04:45 Labs: Abnormal lab results 08/23/21 08/23/21 08/23/21 Range/Units 09:26 09:26 11:50 Hgb 11.1 L (11.8-15.2) gm/dl Hct 34.8 L (35.5-45.6) % MCV 82 L (84-94) fl MCH 26 L (28-32) pg Sodium (137-145) mmol/L Potassium 5.3 H (3.6-5.0) mmol/L Chloride (98-107) mmol/L Creatinine 0.4 L (0.8-1.3) mg/dL Glucose 141 H (75-100) mg/dL POC Glucose 127 H (70-105) mg/dL Calcium 7.9 L (8.4-10.2) mg/dL 08/23/21 08/23/21 08/24/21 Range/Units 16:24 23:02 04:45 Hgb (11.8-15.2) gm/dl Hct (35.5-45.6) % MCV (84-94) fl MCH (28-32) pg Sodium 134 L (137-145) mmol/L Potassium (3.6-5.0) mmol/L Chloride 97.9 L (98-107) mmol/L Creatinine 0.3 L (0.8-1.3) mg/dL Glucose 114 H (75-100) mg/dL POC Glucose 134 H 145 H (70-105) mg/dL Calcium 7.9 L (8.4-10.2) mg/dL Medications & Allergies - Medications Allergies/Adverse Reactions: Allergies No Known Allergies Allergy (Verified 08/22/21 03:39) Home Medications: Home Medications Medication Instructions Recorded Confirmed Last Taken Type Omeprazole [PriLOSEC] 20 mg PO QDAY #30 capsule. 10/06/14 08/22/21 1 Day Ago Rx ~08/05/21 Abiraterone Acetate 250 mg PO DAILY 08/22/21 08/22/21 08/20/21 09:00 History DULoxetine 50 mg PO DAILY 08/22/21 08/22/21 08/20/21 09:00 History Gabapentin [Neurontin] 800 mg PO TID 08/22/21 08/22/21 08/20/21 09:00 History Lisinopril 20 mg PO DAILY 08/22/21 08/22/21 08/20/21 09:00 History Pyridoxine HCl (Vitamin B6) 100 mg PO DAILY 08/22/21 08/22/21 Unknown History [Vitamin B6] amLODIPine 10 mg PO DAILY 08/22/21 08/22/21 08/20/21 09:00 History oxyCODONE 10 mg PO PRN 08/22/21 08/22/21 08/20/21 09:00 History Active Medications: Generic Name Dose Route Start Last Admin Trade Name Freq PRN Reason Stop Dose Admin Acetaminophen 650 mg 08/21/21 20:33 Acetaminophen 325 Mg Tab PO Q4H PRN Pain MILD(1-3)/Fever >100.5/[place]O Hydrocodone Bitart/Acetaminophen 2 each 08/21/21 20:33 08/24/21 01:50 Hydrocodone/Acetaminophen 5-325 Mg Tab PO 2 each Q6H PRN Administration Pain, Moderate (4-6) Amlodipine Besylate 5 mg 08/21/21 21:00 08/24/21 09:15 Amlodipine 5 Mg Tab PO 5 mg DAILY TOI Administration Dextrose 50 ml 08/23/21 11:34 Dextrose 50% In Water (25gm) 50 Ml Syringe IV Q30MIN PRN Hypoglycemia Protocol Hydromorphone HCl 1 mg 08/21/21 20:33 08/24/21 05:43 Hydromorphone 1 Mg/1 Ml Inj IV 1 mg Q3H PRN Administration Pain , Severe (7-10) Insulin Human Lispro 0 unit 08/23/21 16:30 08/24/21 08:20 Insulin Lispro 100 Unit/Ml SUB-Q Not Given ACHS [facility] Protocol Methylprednisolone Sodium Succinate 40 mg 08/21/21 22:00 08/24/21 05:43 Methylprednisolone Sod Succinate 40 Mg/1 Ml Inj IV 40 mg Q8HR TOI Administration Metoclopramide HCl 10 mg 08/21/21 20:33 Metoclopramide 10 Mg/2 Ml Inj IV Q6H PRN Nausea And Vomiting Ondansetron HCl 4 mg 08/21/21 20:33 08/23/21 20:36 Ondansetron 4 Mg/2 Ml Inj IV 4 mg Q3H PRN Administration Nausea And Vomiting Pantoprazole Sodium 20 mg 08/21/21 21:00 08/24/21 09:16 Pantoprazole 20 Mg Tab PO 20 mg QDAY TOI Administration Senna 17.2 mg 08/23/21 22:00 08/23/21 21:23 Sennosides 8.6 Mg Tab PO 17.2 mg QHS TOI Administration Sodium Chloride 10 ml 08/21/21 22:00 08/24/21 09:16 Sodium Chloride 0.9% 10 Ml Flush Syringe IV 10 ml BID TOI Administration Sodium Chloride 10 ml 08/21/21 20:33 Sodium Chloride 0.9% 10 Ml Flush Syringe IV PRN PRN LINE FLUSH Tizanidine HCl 4 mg 08/22/21 21:09 Tizanidine Tab 4 Mg Tab PO Q8H PRN Muscle Spasm
--- NOTE | 2021-08-24 12:03 | Progress Note ---
Subjective Date of service: 08/24/21 Interval history: This is a 66 year old male with HTN, GERD, prostate CA with mets on chemotherapy s/p laminectomy for resection of dorsal epidural mass Neuro: Dorsal epidural met 2/2 prostate cancer, causing severe spinal cord compression, s/p T9-10 laminectonmy for resection of dorsal epidural met -L spine MRI shows severe central canal stenosis at L4-L5 -T spine MRI shows diffuse osseous heterogeneity worrisome for metastatic disease, pulmonary involvement T10 with extra osseous epidural extension and canal stenosis -Neurosurgery consulted, appreciate recommendations -08/22 s/p T9-10 laminectonmy for resection of dorsal epidural met -Taper and DC steroids in the next 4 days -This was discussed with neurosurgery Dr. Ambriz -back brace at bedside-to be worn when he is up -Gabapentin -PRN analgesia -Tizanidine prn Cardio: h/o HTN -Resume home amlodipine Resp: NAD -Supplemental oxygenation as needed -Pulmonary note reviewed and appreciated GI: h/o GERD -CT abdomen/pelvis with contrast shows constipation, hepatomegaly with hepatic steatosis -PPI -BR: Sen[place]ot : Hyperkalemia, h/o prostate CA -Kionex x 1 -Improved Serum potassium down to 4.2 Endo: h/o DM -SSI -Accucheck ACHS -Avoid hypoglycemia ID: NAD -Monitor fever and WBC curve -f/u BC -States he has been vaccianted for covid History Interval history: This is a 66 year old male with HTN, DM, GERD, prostate cancer with mets on chemotherapy who presented to the ED on 08/21 for complains of mid and lower back pain with radiation into the RLE associated with RLE weakness for 1 month with worsening over the past 2 days and new onset inability to walk. He was admitted to the hospitalist service with spinal cord compression from dorsolateral mass at T10 causing severe canal stenosis with cord displacement. Neurosurgery was consulted and he was admitted to the surgical floor. 08/22: Patient seen and examined this morning still with persistent bilateral lower extremity weakness unable to ambulate. Considering MRI findings and discussion with neurosurgeon patient will be proceeding for laminectomy either here based on the OR staffing or transfer to [facility] which I have spoken to them and they have accepted the patient for hospitalist admission with neurosurgery consultation to Dr. Ambriz. For now we will continue steroids as recommended by Dr. Ambriz. Physical therapy evaluation post surgery 08/23: s/p T9-10 laminectomy for resection of dorsal epidural met. Admitted to the ICU post op with katya for blood pressure monitoring. No vasopressor use overnight. Awaiting neurosurgery clearance for transfer to the floor. 08/24 alert and oriented and states he is ready for physical therapy. States he is also ready to go home. Complains of back pain. Denies any chest pain or shortness of breath. States his strength in the lower extremities is good. Denies fever or chills. Lab results reviewed. Awaiting PT/OT evaluation Objective - Constitutional Vitals: Vital Signs - 12hr 08/24/21 08/24/21 08/24/21 00:00 05:34 08:45 Temperature 98.9 F Pulse Rate 60 Respiratory 16 Rate Blood Pressure 149/87 Blood Pressure [Right] O2 Sat by Pulse 99 99 99 Oximetry 08/24/21 08/24/21 09:15 09:17 Temperature 98.1 F Pulse Rate 56 L 56 L Respiratory 20 Rate Blood Pressure 144/85 Blood Pressure 144/85 [Right] O2 Sat by Pulse 100 Oximetry General appearance: Present: no acute distress - EENT Eyes: PERRL, EOM intact ENT: hearing intact, clear oral mucosa - Neck Neck: supple, normal ROM - Respiratory Respiratory effort: normal Respiratory: bilateral: CTA - Cardiovascular Rhythm: regular Heart Sounds: Present: S1 & S2 Extremities: No edema - Gastrointestinal General gastrointestinal: Present: soft, non-tender Rectal Exam: deferred - Genitourinary Male genitourinary: deferred - Integumentary Integumentary: clear (Has a dressing in the upper back) - Neurologic Neurologic: moves all extremities - Psychiatric Psychiatric: appropriate mood/affect - Labs CBC & Chem 7: 08/23/21 09:26 08/24/21 04:45 Labs: Abnormal lab results 08/23/21 08/23/21 08/24/21 Range/Units 16:24 23:02 04:45 Sodium 134 L (137-145) mmol/L Chloride 97.9 L (98-107) mmol/L Creatinine 0.3 L (0.8-1.3) mg/dL Glucose 114 H (75-100) mg/dL POC Glucose 134 H 145 H (70-105) mg/dL Calcium 7.9 L (8.4-10.2) mg/dL 08/24/21 Range/Units 10:45 Sodium (137-145) mmol/L Chloride (98-107) mmol/L Creatinine (0.8-1.3) mg/dL Glucose (75-100) mg/dL POC Glucose 183 H (70-105) mg/dL Calcium (8.4-10.2) mg/dL
[2021-08-24] MEDS: SENNOSIDES 8.6 MG TAB PO SCH (22:03)
--- NOTE | 2021-08-24 23:31 | Consultation ---
OPERATIVE REPORT PREOPERATIVE DIAGNOSES: 1. Metastatic prostate cancer. 2. T9-10 dorsal epidural mass. POSTOPERATIVE DIAGNOSES: 1. Metastatic prostate cancer. 2. T9-10 dorsal epidural mass. PROCEDURES PERFORMED: 1. T9-10 laminectomy for removal of epidural mass. 2. Use of intraoperative neuromonitoring. SURGEON: Jaquan Ambriz II, M.D. PHOTO TECHNICIAN: None. ANESTHESIA: General endotracheal anesthesia. BLOOD LOSS: Approximately 200 mL. FINDINGS: Severe right dorsal lateral spinal stenosis due to a blastic prostate metastases. Good decompression was achieved. COMPLICATIONS: None apparent. DISPOSITION: Stable, extubated to the recovery unit. BRIEF HISTORY: The patient is a 66-year-old male with a history of metastatic prostate cancer, initially diagnosed several years ago. He was treated with chemotherapy and has not had followup with [facility] in the recent past. He presented to [facility] the night prior to surgery with complaints of progressive lower extremity weakness. Imaging studies were performed demonstrating severe stenosis at T9-10 secondary to a blastic met involving the right posterolateral canal at the level of T10. There was apparent T2 intramedullary edema noted as well. Due to the imaging findings and the progression of his neurologic deficits, I recommended thoracic laminectomy for resection of the metastatic lesion and to decompress the spinal cord. I reviewed all pertinent risks, benefits and potential complications of the operation and the patient agreed to proceed. DETAILS OF THE OPERATION: The patient was taken to the operating theater by anesthesia. He was intubated without difficulty. He was positioned prone on a Delfino frame. Please note that all pressure points were padded to prevent peripheral nerve injury. His eyes were lubricated and taped shut to prevent corneal abrasion. The area was prepped and draped in the usual sterile fashion. The location of the skin incision was determined with the use of AP fluoroscopy. Skin was infiltrated with 1% lidocaine with epinephrine. Skin was opened with a #10 scalpel blade. Further dissection was performed with electrosurgical generator of Pb Duran. The bilateral T9 and T10 laminae were exposed in a subperiosteal fashion. Self-retaining retractors were utilized to maintain exposure. The appropriate anatomical level was confirmed with AP fluoroscopy and a [place] Line #4. Next, the spinous processes and interspinous ligaments were removed with the Leksell rongeur. Next, using a high-speed matchstick drill, the T9 and T10 lamina were removed. The ligamentum flavum was gently dissected to gain access to the dorsal epidural space. The residual ligamentum flavum was removed very carefully with 2-0 and 3-0 Kerrison rongeurs. There was an apparent large right-sided dorsal and lateral calcified metastatic lesion that was causing severe displacement of the spinal cord to the left side. This blastic and very hard lesion was carefully drilled with a high-speed matchstick drill and removed in its entirety with 2-0 Kerrison rongeurs. Spinal cord was widely decompressed and appeared to assume a more normal anatomic configuration. There were several fragments of tumor specimen that was sent to the lab for permanent specimen. Next, meticulous hemostasis was achieved with Surgiflo and the bipolar forceps of . The soft tissues were copiously irrigated with saline. Vancomycin powder was sprinkled throughout the exposure to coat the soft tissues and finally attention was directed to closure. Prior to closure, a medium Hemovac drain was tunneled through the skin and secured and placed overlying the decompression. The muscle and fascia were closed with 0 polyglactin synthetic absorbable suture. The dermis was closed with 2-0 polyglactin synthetic absorbable suture in an inverted fashion. The skin was reapproximated with driss. The incision was washed, dried, coated with antibiotic ointment and covered with a sterile dressing. There were no neuromonitoring changes throughout the duration of the operation. The patient appeared to tolerate the operation well. He was transferred back to anesthesia where he was extubated without difficulty. The patient was transferred to the recovery room in stable condition. TID: [id number] RECEIPT: [id number] NEIL/PEE/NEREIDA CHEEMA
[2021-08-25] MEDS: HYDROmorphone 1 MG/1 ML INJ IV PRN ×2 (06:22→15:22)
[2021-08-25 06:37] LABS: Blood Urea Nitrogen 12 mg/dL (9-20); Calcium 7.8 mg/dL (8.4-10.2); Hemolysis Index 0
[2021-08-25 06:43] LABS: BUN/Creatinine Ratio 40
[2021-08-25 06:52] VITALS: BP 132/83
--- NOTE | 2021-08-25 08:21 | Operative Report ---
Operative Report Operative Report: DATE OF OPERATION: 08/22/2021 PREOPERATIVE DIAGNOSES: 1. Metastatic prostate cancer. 2. T9-10 dorsal epidural mass. POSTOPERATIVE DIAGNOSES: 1. Metastatic prostate cancer. 2. T9-10 dorsal epidural mass. PROCEDURES PERFORMED: 1. T9-10 laminectomy for removal of epidural mass. 2. Use of intraoperative neuromonitoring. SURGEON: Jaquan Ambriz II, M.D. AVAYA ENGINEER: None. ANESTHESIA: General endotracheal anesthesia. BLOOD LOSS: Approximately 200 mL. FINDINGS: Severe right dorsal lateral spinal stenosis due to a osteoblastic prostate metastasis. Good decompression was achieved. COMPLICATIONS: None apparent. DISPOSITION: Stable, extubated to the recovery unit. BRIEF HISTORY: Donald De is a 66-year-old male with a history of metastatic prostate cancer, initially diagnosed several years ago. He was treated with chemotherapy at [facility] but has not had follow up in the the recent past. He presented to [facility] on 08/21/21 with complaints of progressive lower extremity weakness. Imaging studies were performed demonstrating severe stenosis at T9-10 secondary to an osteoblastic metastasis involving the right posterolateral canal at the level of T10. There was apparent T2 intramedullary edema noted.. Due to the imaging findings and the progression of his neurologic deficits, I recommended thoracic laminectomy for resection of the metastatic lesion decompress the spinal cord. I reviewed all pertinent risks, benefits and potential complications of the operation. Mr. De agreed to proceed. DETAILS OF THE OPERATION: The patient was taken to the operating theater by anesthesia. He was intubated without difficulty. He was positioned prone on a Delfino frame. Please note that all pressure points were padded to prevent peripheral nerve injury. His eyes were lubricated and taped shut to prevent corneal abrasion. The area was prepped and draped in the usual sterile fashion. The location of the skin incision was determined with the use of AP fluoroscopy. The skin was infiltrated with 1% lidocaine with epinephrine. The skin was opened with a #10 scalpel blade. Further dissection was performed with electrosurgical generator of Pb Duran. The bilateral T9 and T10 laminae were exposed in a subperiosteal fashion. Self-retaining retractors were utilized to maintain exposure. The appropriate anatomical level was confirmed with AP fluoroscopy and a Haskell #4. Next, the spinous processes and interspinous ligaments were removed with a Leksell rongeur. Next, using a high-speed matchstick drill, the T9 and T10 lamina were removed. The ligamentum flavum was gently dissected to gain access to the dorsal epidural space. The residual ligamentum flavum was removed very carefully with 2-0 and 3-0 Kerrison rongeurs. There was an apparent large right-sided dorsal and lateral oste oblastic metastatic lesion that was causing severe displacement of the spinal cord to the left side. This blastic and very hard lesion was carefully drilled with a high-speed matchstick drill and removed in its entirety with 2-0 Kerrison rongeurs. Spinal cord was widely decompressed and appeared to assume a more normal anatomic configuration. There were several fragments of tumor specimen that were sent to the lab for further analysis. Next, meticulous hemostasis was achieved with Surgiflo and the bipolar forceps of Jake Abebe. The soft tissues were copiously irrigated with saline. Vancomycin powder was sprinkled throughout the exposure to coat the soft tissues. A medium Hemovac drain was tunneled through the skin and placed overlying the decompression. Finally, attention was directed to closure. The muscle and fascia were closed with 0 polyglactin synthetic absorbable suture. The dermis was closed with 2-0 polyglactin synthetic absorbable suture in an inverted fashion. The skin was reapproximated with driss. The incision was washed, dried, coated with antibiotic ointment and covered with a sterile dressing. There were no neuromonitoring changes throughout the duration of the operation. The patient appeared to tolerate the operation well. He was returned to anesthesia where he was extubated without delay. The patient was transferred to the recovery room in stable condition. TID: [id number] RECEIPT: [id number] NEIL/PEE/NEREIDA
[2021-08-25] MEDS: amLODIPine 5 MG TAB PO SCH (09:06)
[2021-08-25] MEDS: PANTOPRAZOLE 20 MG TAB PO SCH (09:06)
[2021-08-25] MEDS: HYDROcodone/ACETAMINOPHEN 5-325 MG TAB PO PRN (09:06)
[2021-08-25] MEDS: INSULIN LISPRO 100 UNIT/ML SUB-Q SCH ×2 (09:07→13:15)
[2021-08-25] MEDS: methylPREDNISolone Sod Succinate 40 MG/1 ML INJ IV SCH (09:08)
--- NOTE | 2021-08-25 10:40 | Progress Note ---
Subjective Date of service: 08/25/21 Interval history: This is a 66 year old male with HTN, GERD, prostate CA with mets on chemotherapy s/p laminectomy for resection of dorsal epidural mass Neuro: Dorsal epidural met 2/2 prostate cancer, causing severe spinal cord compression, s/p T9-10 laminectonmy for resection of dorsal epidural met -L spine MRI shows severe central canal stenosis at L4-L5 -T spine MRI shows diffuse osseous heterogeneity worrisome for metastatic disease, pulmonary involvement T10 with extra osseous epidural extension and canal stenosis -Neurosurgery note reviewed -Taper and DC steroids in the next 3 days -This was discussed with neurosurgery Dr. Ambriz -back brace at bedside-to be worn when he is up -Gabapentin -PRN analgesia -Tizanidine prn PT note reviewed Patient for acute rehab placement Patient was updated about the plan and he is okay with it HTN-fair -Continue amlodipine GI: h/o GERD -CT abdomen/pelvis with contrast shows constipation, hepatomegaly with hepatic steatosis -PPI -BR: [place] : Hyperkalemia -Improved Endo: h/o DM -SSI -Accucheck ACHS -Avoid hypoglycemia -States he has been vaccianted for covid History of metastatic prostate cancer Outpatient follow-up with oncology Normocytic anemia-mild No overt bleed History Interval history: This is a 66 year old male with HTN, DM, GERD, prostate cancer with mets on chemotherapy who presented to the ED on 08/21 for complains of mid and lower back pain with radiation into the RLE associated with RLE weakness for 1 month with worsening over the past 2 days and new onset inability to walk. He was admitted to the hospitalist service with spinal cord compression from dorsolateral mass at T10 causing severe canal stenosis with cord displacement. Neurosurgery was consulted and he was admitted to the surgical floor. 08/22: Patient seen and examined this morning still with persistent bilateral lower extremity weakness unable to ambulate. Considering MRI findings and discussion with neurosurgeon patient will be proceeding for laminectomy either here based on the OR staffing or transfer to [facility] which I have spoken to them and they have accepted the patient for hospitalist admission with neurosurgery consultation to Dr. Ambriz. For now we will continue steroids as recommended by Dr. Ambriz. Physical therapy evaluation post surgery 08/23: s/p T9-10 laminectomy for resection of dorsal epidural met. Admitted to the ICU post op with katya for blood pressure monitoring. No vasopressor use overnight. Awaiting neurosurgery clearance for transfer to the floor. 08/24 alert and oriented and states he is ready for physical therapy. States he is also ready to go home. Complains of back pain. Denies any chest pain or shortness of breath. States his strength in the lower extremities is good. Denies fever or chills. Lab results reviewed. Awaiting PT/OT evaluation 08/25 patient is alert and oriented and offers no specific complaints. States he is ready to go to rehab. States pain is well controlled. Denies fever, chills, chest pain or shortness of breath 12 point review of systems is essentially unremarkable Objective - Constitutional Vitals: Vital Signs - 12hr 08/24/21 08/25/21 22:39 06:09 Temperature 99.5 F 98.8 F Pulse Rate 60 63 Respiratory 18 18 Rate Blood Pressure 128/69 132/83 O2 Sat by Pulse 97 98 Oximetry General appearance: Present: no acute distress - EENT Eyes: PERRL, EOM intact ENT: hearing intact, clear oral mucosa - Neck Neck: supple, normal ROM - Respiratory Respiratory effort: normal Respiratory: bilateral: CTA - Cardiovascular Rhythm: regular Heart Sounds: Present: S1 & S2 Extremities: No edema - Gastrointestinal General gastrointestinal: Present: soft, non-tender Rectal Exam: deferred - Integumentary Integumentary: clear - Neurologic Neurologic: moves all extremities, other (Bilateral lower extremity weakness) - Psychiatric Psychiatric: appropriate mood/affect - Labs CBC & Chem 7: 08/23/21 09:26 08/25/21 04:51 Labs: Abnormal lab results 08/24/21 08/24/21 08/24/21 Range/Units 10:45 15:21 22:46 Creatinine (0.8-1.3) mg/dL Glucose (75-100) mg/dL POC Glucose 183 H 136 H 119 H (70-105) mg/dL Calcium (8.4-10.2) mg/dL 08/25/21 Range/Units 04:51 Creatinine 0.3 L (0.8-1.3) mg/dL Glucose 130 H (75-100) mg/dL POC Glucose (70-105) mg/dL Calcium 7.8 L (8.4-10.2) mg/dL
--- NOTE | 2021-08-25 17:18 | Progress Note ---
Assessment and Plan 66 y/o M POD2 s/p T9-10 laminectomy for removal of dorsal osteoblastic metastasis -cont current care -PT/OT -drain to suction -clear for pharmacologic dvt prophylaxis -anticipate drain removal tomorrow -agree with Acute rehab placement -will arrange for outpatient follow up at [facility] Subjective Date of service: 08/25/21 Principal diagnosis: Thoracic myelopathy Interval history: CINDA; pt reports continued improvement of his back pain and LE strength Objective - Exam Narrative Exam: CINDA pt stable overnight A&Ox3 CNII-XII intact Motor and sensory stable incision dressed, c/d/i drain patent - Vital Sign Vital Signs - 12hr 08/25/21 08/25/21 06:09 08:00 Temperature 98.8 F Pulse Rate 63 Respiratory 18 Rate Blood Pressure 132/83 O2 Sat by Pulse 98 99 Oximetry - Laboratory Findings CBC and BMP: 08/23/21 09:26 08/25/21 04:51 Abnormal Lab Findings: Abnormal Labs 08/21/21 08/21/21 08/21/21 08:31 08:32 08:48 WBC Hgb Hct MCV 81 L MCH 27 L Lymph # (Auto) 1.0 L Seg Neutrophils % 76.5 H Sodium 136 L Potassium 2.6 L* Chloride 91.8 L BUN 7 L Creatinine 0.3 L Glucose 135 H POC Glucose Calcium Magnesium 2.50 H AST 42 H Alkaline Phosphatase 749 H Albumin 08/21/21 08/22/21 08/22/21 21:28 05:33 05:33 WBC 3.8 L Hgb Hct MCV 82 L MCH 27 L Lymph # (Auto) 0.7 L Seg Neutrophils % 78.9 H Sodium Potassium Chloride BUN Creatinine 0.4 L Glucose 149 H POC Glucose 130 H Calcium Magnesium AST Alkaline Phosphatase 638 H Albumin 3.8 L 08/22/21 08/22/21 08/22/21 05:33 08:02 11:39 WBC Hgb Hct MCV MCH Lymph # (Auto) Seg Neutrophils % Sodium Potassium Chloride BUN Creatinine Glucose POC Glucose 171 H 155 H Calcium Magnesium 2.40 H AST Alkaline Phosphatase Albumin 08/22/21 08/23/21 08/23/21 19:33 04:00 09:26 WBC Hgb 11.1 L Hct 34.8 L MCV 82 L MCH 26 L Lymph # (Auto) Seg Neutrophils % Sodium Potassium Chloride BUN Creatinine Glucose POC Glucose 193 H 179 H Calcium Magnesium AST Alkaline Phosphatase Albumin 08/23/21 08/23/21 08/23/21 09:26 11:50 16:24 WBC Hgb Hct MCV MCH Lymph # (Auto) Seg Neutrophils % Sodium Potassium 5.3 H Chloride BUN Creatinine 0.4 L Glucose 141 H POC Glucose 127 H 134 H Calcium 7.9 L Magnesium AST Alkaline Phosphatase Albumin 08/23/21 08/24/21 08/24/21 23:02 04:45 10:45 WBC Hgb Hct MCV MCH Lymph # (Auto) Seg Neutrophils % Sodium 134 L Potassium Chloride 97.9 L BUN Creatinine 0.3 L Glucose 114 H POC Glucose 145 H 183 H Calcium 7.9 L Magnesium AST Alkaline Phosphatase Albumin 08/24/21 08/24/21 08/25/21 15:21 22:46 04:51 WBC Hgb Hct MCV MCH Lymph # (Auto) Seg Neutrophils % Sodium Potassium Chloride BUN Creatinine 0.3 L Glucose 130 H POC Glucose 136 H 119 H Calcium 7.8 L Magnesium AST Alkaline Phosphatase Albumin
--- NOTE | 2021-08-25 18:40 | Discharge Summary ---
Providers - Providers Date of Admission: 08/21/21 16:31 Date of discharge: 08/25/21 Attending physician: ESTUARDO BAIG 08/21/21 Consult to Case Management [CONS] Routine Services Needed at Discharge: Home Health Services Superintendent Notified:: JENNA 08/24/21 11:34 Physical Therapy Evaluation and Treat [CONS] Urgent Comment: Reason For Exam: unstable gait 08/24/21 19:30 Occupational Therapy Evaluate and Treat [CONS] Routine Comment: Reason For Exam: S/P T9-10 Laminectomy Primary care physician: [employer] Hospitalization Condition: Good Procedures: T9-10 laminectonmy with resection of dorsal epidural metastatic mass Hospital course: This is a 66 year old male with HTN, GERD, prostate CA with mets on chemotherapy s/p laminectomy for resection of dorsal epidural mass Neuro: Dorsal epidural met 2/2 prostate cancer, causing severe spinal cord compression, s/p T9-10 laminectonmy for resection of dorsal epidural met -L spine MRI shows severe central canal stenosis at L4-L5 -T spine MRI shows diffuse osseous heterogeneity worrisome for metastatic disea se, pulmonary involvement T10 with extra osseous epidural extension and canal stenosis -Neurosurgery note reviewed -Taper and DC steroids in the next 3 days -This was discussed with neurosurgery Dr. López -back brace at bedside-to be worn when he is up -Gabapentin -PRN analgesia -Tizanidine prn PT note reviewed Patient for acute rehab placement Patient was updated about the plan and he is okay with it HTN-fair -Continue amlodipine GI: h/o GERD -CT abdomen/pelvis with contrast shows constipation, hepatomegaly with hepatic steatosis -PPI -BR: [place] : Hyperkalemia -Improved Endo: h/o DM -SSI -Accucheck ACHS -Avoid hypoglycemia -States he has been vaccianted for covid History of metastatic prostate cancer Outpatient follow-up with oncology Normocytic anemia-mild No overt bleed History Interval history: This is a 66 year old male with HTN, DM, GERD, prostate cancer with mets on chemotherapy who presented to the ED on 08/21 for complains of mid and lower back pain with radiation into the RLE associated with RLE weakness for 1 month with worsening over the past 2 days and new onset inability to walk. He was admitted to the hospitalist service with spinal cord compression from dorsolateral mass at T10 causing severe canal stenosis with cord displacement. Neurosurgery was consulted and he was admitted to the surgical floor. 08/22: Patient seen and examined this morning still with persistent bilateral lower extremity weakness unable to ambulate. Considering MRI findings and discussion with neurosurgeon patient will be proceeding for laminectomy either here based on the OR staffing or transfer to [facility] which I have spoken to them and they have accepted the patient for hospitalist admission with neurosurgery consultation to Dr. López. For now we will continue steroids as recommended by Dr. López. Physical therapy evaluation post surgery 08/23: s/p T9-10 laminectomy for resection of dorsal epidural met. Admitted to the ICU post op with katya for blood pressure monitoring. No vasopressor use overnight. Awaiting neurosurgery clearance for transfer to the floor. 08/24 alert and oriented and states he is ready for physical therapy. States he is also ready to go home. Complains of back pain. Denies any chest pain or shortness of breath. States his strength in the lower extremities is good. Denies fever or chills. Lab results reviewed. Awaiting PT/OT evaluation 08/25 patient is alert and oriented and offers no specific complaints. States he is ready to go to rehab. States pain is well controlled. Denies fever, chills, chest pain or shortness of breath 08/25 patient is being discharged to acute rehab facility. He is medically stable Disposition: [facility] Final Discharge Diagnosis (Prints w/discharge instructions): metastatic epidural thorasic mass with cord compression Time spent for discharge: 38 min Core Measure Documentation - Palliative Care Palliative Care/ Comfort Measures: Not Applicable - Core Measures Any of the following diagnoses?: none Exam - Constitutional Vitals: Temp Pulse Resp BP Pulse Ox 98.8 F 63 18 132/83 99 08/25/21 06:09 08/25/21 06:09 08/25/21 06:09 08/25/21 06:09 08/25/21 08:00 General appearance: Present: no acute distress - EENT Eyes: Present: PERRL, EOM intact ENT: hearing intact - Neck Neck: Present: supple - Respiratory Respiratory effort: normal Respiratory: bilateral: CTA - Cardiovascular Rhythm: regular Heart Sounds: Present: S1 & S2 - Extremities Extremities: No edema - Abdominal General gastrointestinal: Present: soft, non-tender - Integumentary Integumentary: Present: clear - Psychiatric Psychiatric: appropriate mood/affect - Neurologic Neurologic: moves all extremities Plan Activity: advance as tolerated, fall precautions Weight Bearing Status: Weight Bear as Tolerated Diet: regular, low fat, low cholesterol Wound: keep clean and dry Follow up with: PRIMARY CARE, [Primary Care Provider] - 3-5 Days JAIRO LÓPEZ II, MD [Staff Physician] - 10 Days Forms: AMA Form
[2021-08-26] MEDS ORDERED: methylPREDNISolone Sod Succinate 40 MG/1 ML INJ IV SCH (22:00)
== END 2021-08-25 17:28 | DRG 29 ==
LOC: ED 08:17 → 3A 16:31 → CC1 08-22 19:47 → 3A 08-23 17:51
PROVIDERS: ADMIT Internal Medicine; ATTEND Internal Medicine
PROC: 00NX0ZZ Release Thoracic Spinal Cord, Open Approach (ICD-10-PCS; principal; 2021-08-22)
PROC: 4A11X4G Monitoring of Peripheral Nervous Electrical Activity, Intraoperative, External Approach (ICD-10-PCS; 2021-08-22)
DX: C79.49 Secondary malignant neoplasm of other parts of nervous system (principal); G95.20 Unspecified cord compression; E87.1 Hypo-osmolality and hyponatremia; E87.6 Hypokalemia; Z79.899 Other long term (current) drug therapy; K21.9 Gastro-esophageal reflux disease without esophagitis; E11.42 Type 2 diabetes mellitus with diabetic polyneuropathy; F17.200 Nicotine dependence, unspecified, uncomplicated; E87.5 Hyperkalemia; M48.04 Spinal stenosis, thoracic region
CPT/HCPCS: 36415; 72020; 72157; 72158; 74177; 80048; 80053; 81001; 82140; 82550; 82962; 83735; 85025; 85027; 85610; 87040; 88307; 93005; G0378; J1815; J3480; J3490; J7120; Q9967; A9575; J0171; J0461; J0690; J1100; J1170; J1644; J2001; J2250; J2270; J2370; J2405; J2704; J2920; J3010; J3370; J7040